=== PATIENT | male | born 1995 | race African-American/Black ===

== ENCOUNTER 2020-05-27 23:36 | Emergency (ER) | payer OTHER ==
[~2020-05-27] VITALS: Ht 167.6 cm; Wt 127.0 kg
[2020-05-27] MEDS ORDERED: OLANZAPINE 10 MG VIAL IM ONE (23:52)
[2020-05-27 23:58] VITALS: BP 134/74
--- NOTE | 2020-05-27 23:59 | NUR ---
PT WAS BIBRA FROM [place] FOR BIZARRE BEHAVIOR, HEARING VOICES AND SEEING THINGS. PT SEEMS AGITATED AND NONCOOPERATIVE ON TRIAGE, AND TALKING TO HIMSELF. PT WS PLACED IN BED 12. REFUSED MONITOR AT THIS TIME. SI PREVCAUTION IN PLACE. URINE SAMPLE OBTAINED , WILL CONT TO MONITOR,
[2020-05-28] MEDS ORDERED: OLANZAPINE 10 MG VIAL IM ONE
--- NOTE | 2020-05-28 00:02 | NUR ---
PATIENT IS RUDE TO TRIAGE NURSE. "I GIVE YOU URINE WHENEVER I WANT, DON'T TELL ME WHAT TO DO."
--- NOTE | 2020-05-28 00:03 | NUR ---
SUPERVISOR PICKING CREW AT BEDSIDE FOR BLOOD DRAW
--- NOTE | 2020-05-28 00:05 | NUR ---
PATIENT REFUSING BLOOD DRAW.
[2020-05-28 00:21] LABS: APPEARANCE,URINE Clear (CLEAR); BILIRUBIN,URINE Negative (NEGATIVE); BLOOD, URINE Negative Ery/uL (NEGATIVE); COLOR,URINE Yellow (YELLOW); KETONES,URINE Negative (NEGATIVE); LEUKOCYTE ESTERASE ,URINE Negative (NEGATIVE); NITRITE, URINE Negative (NEGATIVE); PROTEIN,URINE Negative (NEGATIVE); UGLUCOSE Negative (NEGATIVE); UROBILINOGEN,URINE 0.2 EU/dL (0.2)
--- NOTE | 2020-05-28 00:27 | NUR ---
PATIENT WANTS TO HAVE BLOOD DRAWN AGAIN.
--- NOTE | 2020-05-28 00:35 | NUR ---
PATIENT TOLD GORE CUTTER, "CAN YOU WAIT 20 MINUTES? I DON'T WANT ANY BLOOD DRAWN RIGHT NOW."
--- NOTE | 2020-05-28 00:48 | NUR ---
PATIENT IS RUDE TO STAFF. PATIENT IS CURSING AT STAFF.
--- NOTE | 2020-05-28 01:08 | NUR ---
PATIENT LEFT THE FACILITY.
== END 2020-05-28 01:12 | disposition left against medical advice (07) ==
LOC: ER 23:39
DX: Z76.5 Malingerer [conscious simulation] (principal); F31.9 Bipolar disorder, unspecified; F20.9 Schizophrenia, unspecified; Z59.0 Homelessness
CPT/HCPCS: 80305; 81001; 99283; J3490; 81000-TC

== ENCOUNTER 2020-05-29 17:47 | Emergency (ER) | payer MEDICAID, OTHER ==
[~2020-05-29] VITALS: Ht 170.2 cm; Wt 149.7 kg
--- NOTE | 2020-05-29 18:05 | NUR ---
CAME HERE FOR HELP REGARDING REHAB AND PLACEMENT SAYING HE DOESN'T FEEL SAFE OUTSIDE,"PEOPLE ARE OUT TO GET ME", DENIES SI/HI. PATIENT A/OX4, BREATHING EVEN AND UNLABORED, NO SOB NOTED, NEEDS ATTENDED, KEPT COMFORTABLE.
--- NOTE | 2020-05-29 18:55 | NUR ---
SOFI BOYKIN [phone]
--- NOTE | 2020-05-29 19:05 | NUR ---
PER LUCRETIA, PATIENT DOES NOT MEET CRITERIA FOR VOLUNTARY HOSPITAL SINCE PATIENT DENIES SI/HI. PATIENT GIVEN COPIES OF HOMELESS SHELTERS.
--- NOTE | 2020-05-29 21:32 | NUR ---
PATIENT IS CURSING AT SECURITY AND NURSING STAFF. PATIENT STATES, "SHUT THE FUCK UP, NIGGA", "I'LL SPIT IN YOUR FACE, NIGGA", "FUCK YOU". PATIENT IS RUDE. PATIENT IS PICKING UP AND THROWING THE HOLY BIBLE ON THE FLOOR 4 TIMES. PATIENT IS REFUSING POST GRADUATE INTERN, REFUSING SERVICES PROVIDED BY STAFF. PATIENT IS DISCHARGED WITH LIST OF SHELTERS. PATIENT REFUSES TO STATES WHERE HE WILL GO.
--- NOTE | 2020-05-29 21:45 | NUR ---
Patient discharged to home in stable condition. Written and verbal after care instructions given. Patient verbalizes understanding of instruction.
[2020-05-29 21:46] VITALS: BP 124/74
== END 2020-05-29 21:47 | disposition home or self-care (01) ==
LOC: ER 17:51
DX: Z00.00 Encounter for general adult medical examination without abnormal findings (principal); Z59.0 Homelessness; F20.9 Schizophrenia, unspecified; F31.9 Bipolar disorder, unspecified

== ENCOUNTER 2020-07-07 20:43 | Inpatient (IN) | payer MEDICAID, OTHER ==
[~2020-07-07] VITALS: Ht 172.7 cm; Wt 145.1 kg
[2020-07-07 21:22] LABS: BILIRUBIN,URINE SMALL (NEGATIVE); BLOOD, URINE LARGE Ery/uL (NEGATIVE); COLOR,URINE YELLOW (YELLOW); LEUKOCYTE ESTERASE ,URINE NEGATIVE (NEGATIVE); NITRITE, URINE NEGATIVE (NEGATIVE); PROTEIN,URINE 100 mg/dl (NEGATIVE); UGLUCOSE NEGATIVE (NEGATIVE)
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
[2020-07-07 21:34] LABS: BASOPHILS % (AUTO) 0.3 % (0.0-2.0); HEMATOCRIT 41 % (39-51); HEMOGLOBIN 13.2 g/dL (13.5-17.5); LYMPHOCYTES # (AUTO) 0.8 /CMM (0.8-4.8); LYMPHOCYTES % (AUTO) 5.5 % (20.0-44.0); MEAN CORPUSCULAR HGB CONC 33 g/dl (31.0-36.0); MEAN CORPUSCULAR VOLUME 83 fL (80-96); MONOCYTES # (AUTO) 0.8 /CMM (0.1-1.30); MONOCYTES % (AUTO) 5.4 % (2.0-12.0); NEUTROPHILS # (AUTO) 13.2 /CMM (1.8-8.9); NEUTROPHILS % (AUTO) 88.8 % (43.0-81.0); PLATELET COUNT (AUTO) 247 /CMM (150-450); RED BLOOD CELL COUNT(AUTO) 4.88 MIL/uL (4.5-6.0); WHITE BLOOD COUNT (AUTO) 14.9 K/uL (4.3-11.0)
[2020-07-07 21:34] LABS: BACTERIA,URINE 1+ /HPF (None Seen); SQUAMOUS EPITHELIAL CELL,UR 0-2 /HPF (None Seen); WBC,URINE 0-2 /HPF (0-3)
[2020-07-07] MEDS ORDERED: VANCOMYCIN 500 MG VIAL ONE (21:47)
[2020-07-07] MEDS ORDERED: CEFTRIAXONE 1GM BAG (ER ONLY) 50 ML IV ONE (21:47)
[2020-07-07] MEDS ORDERED: VANCOMYCIN 1 GM VIAL ONE (21:47)
[2020-07-07] MEDS ORDERED: VANCOMYCIN HCL IV ONE (22:00)
[2020-07-07] MEDS ORDERED: IV NS 0.9% 500 ML BAG IV ONE (22:00)
[2020-07-07] MEDS ORDERED: D5W IV ONE (22:00)
[2020-07-07] MEDS ORDERED: CEFTRIAXONE 1GM BAG (ER ONLY) 1 GM/50 ML PIGGYBACK IV ONE (22:00)
[2020-07-07 22:04] LABS: CARBON DIOXIDE 27 mmol/L (21-32); CHLORIDE 98 mmol/L (98-107); CREATININE 1.8 mg/dL (0.6-1.3); GLUCOSE 107 mg/dL (74-106); POTASSIUM 3.4 mmol/L (3.5-5.1); SODIUM SERUM 135 mmol/L (136-145); UREA NITROGEN, BLOOD 28 mg/dL (7-18)
[2020-07-07 22:09] LABS: ALANINE AMINOTRANSFERASE 116 U/L (12-78); ALBUMIN 2.9 g/dL (3.4-5.0); ALCOHOL, BLOOD < 3 mg/dL (0-0); ALKALINE PHOSPHATASE 67 U/L (46-116); ASPARTATE AMINOTRANSFERASE 308 U/L (15-37); BILIRUBIN,DIRECT 0.3 mg/dL (0.0-0.2); BILIRUBIN,TOTAL 0.6 mg/dL (0.2-1.0); TOTAL PROTEIN, SERUM 9.4 g/dL (6.4-8.2)
[2020-07-07 22:12] LABS: ACETAMINOPHEN < 2 ug/ml (10-30)
--- NOTE | 2020-07-07 22:15 | NUR ---
MEDICATED PER ERMD ORDER, PT FIDENCIO WELL. PT CALM & COOPERATIVE, NAD NOTED @ THIS TIME. WILL CONT TO MONITOR.
[2020-07-07] MEDS ORDERED: IV NS 0.9% 1,000 ML IV SCH (23:30)
[2020-07-07] MEDS ORDERED: ONDANSETRON HCL/PF 4 MG/2 ML VIAL IVP PRN (23:30)
[2020-07-07] MEDS ORDERED: MAG HYDROX/AL HYDROX/SIMETH 30 ML UDC PO PRN (23:30)
[2020-07-07] MEDS ORDERED: ACETAMINOPHEN 325 MG TABLET PO PRN (23:30)
[2020-07-07] MEDS ORDERED: MAGNESIUM HYDROXIDE 30 ML UDC PO PRN (23:30)
[2020-07-07] MEDS ORDERED: ZOLPIDEM TARTRATE 5 MG TABLET PO PRN (23:30)
[2020-07-07] MEDS ORDERED: Z GUARD REMEDY 2 OZ OINT TP PRN (23:30)
[2020-07-08] VITALS (7 sets, daily range): BP systolic 88–142; BP diastolic 52–94
--- NOTE | 2020-07-08 00:31 | NUR ---
PT RESTING IN BED COMFORTABLY. VSS.
--- NOTE | 2020-07-08 02:13 | NUR ---
PT PROVIDED WITH MORE BLANKETS.
[2020-07-08 03:58] LABS: BASOPHILS # (AUTO) 0.1 /CMM (0.0-0.2); BASOPHILS % (AUTO) 0.4 % (0.0-2.0); HEMATOCRIT 36 % (39-51); HEMOGLOBIN 11.5 g/dL (13.5-17.5); LYMPHOCYTES # (AUTO) 0.8 /CMM (0.8-4.8); MEAN CORPUSCULAR HGB CONC 32 g/dl (31.0-36.0); MEAN CORPUSCULAR VOLUME 83 fL (80-96); MONOCYTES % (AUTO) 7.2 % (2.0-12.0); NEUTROPHILS # (AUTO) 11.6 /CMM (1.8-8.9); NEUTROPHILS % (AUTO) 86.4 % (43.0-81.0); PLATELET COUNT (AUTO) 227 /CMM (150-450); WHITE BLOOD COUNT (AUTO) 13.4 K/uL (4.3-11.0)
--- NOTE | 2020-07-08 04:11 | NUR ---
PT ON MONITOR AND PULSE OX. VSS.
[2020-07-08 04:13] LABS: ALANINE AMINOTRANSFERASE 102 U/L (12-78); ALBUMIN 2.4 g/dL (3.4-5.0); ALKALINE PHOSPHATASE 59 U/L (46-116); ASPARTATE AMINOTRANSFERASE 242 U/L (15-37); BILIRUBIN,TOTAL 0.5 mg/dL (0.2-1.0); CALCIUM, SERUM 7.7 mg/dL (8.5-10.1); CARBON DIOXIDE 27 mmol/L (21-32); CHLORIDE 100 mmol/L (98-107); CREATININE 1.4 mg/dL (0.6-1.3); GLUCOSE 110 mg/dL (74-106); MAGNESIUM 1.9 mg/dL (1.8-2.4); PHOSPHORUS 1.3 mg/dL (2.5-4.9); POTASSIUM 3.4 mmol/L (3.5-5.1); SODIUM SERUM 135 mmol/L (136-145); TOTAL PROTEIN, SERUM 8.1 g/dL (6.4-8.2); UREA NITROGEN, BLOOD 20 mg/dL (7-18)
[2020-07-08 04:15] LABS: CHOLESTEROL 100 mg/dL (<200); LDL 43 mg/dL (0-99); TRIGLYCERIDES 154 mg/dL (30-150)
[2020-07-08 04:30] LABS: HDL CHOLESTEROL < 10 mg/dL (40-60)
--- NOTE | 2020-07-08 06:03 | NUR ---
PT C/O PAIN, MEDICATED.
[2020-07-08] MEDS ORDERED: HYDROCODONE/APAP 5/325MG TABLET ONE (06:10)
[2020-07-08] MEDS: HYDROCODONE/APAP 5/325MG TABLET PO PRN ×3 (06:11→18:17)
[2020-07-08] MEDS ORDERED: RISP0.2515 PO (07:42)
[2020-07-08] MEDS ORDERED: BENZ2TAB7 PO (07:42)
--- NOTE | 2020-07-08 07:52 | NUR ---
room [id number]
--- NOTE | 2020-07-08 08:42 | NUR ---
REPORT GIVEN TO ASHUTOSH NUNEZ FOR EDY.
--- NOTE | 2020-07-08 08:44 | NUR ---
report given to Casper BOYKIN for bren
--- NOTE | 2020-07-08 08:59 | NUR ---
wheeled patient via gurney accompanied by RN and emt in no distress. RN at bedside to assume care.
--- NOTE | 2020-07-08 09:30 | NUR ---
MASTER NAVAL PARACHUTIST NOTES RECEIVED PATIENT FROM ER WITH ADMITTING DIAGNOSIS OF SEPSIS , SIRS AND SUICIDAL IDEATION , AOX4 , VERBALIZING SUICIDAL IDEATION BY PLANNING TO JUMP INFRONT OF A CAR , NO HOMICIDAL IDEATION AT THIS TIME , DENIES SOB AND DISCOMFORT AT THIS TIME , SPO2 OF 97% VIA RA , ST 110 ON BEDSIDE MONITOR , IV OF R AC # 18 PATENT AND INTACT SL , SKIN ASSESSMENT DONE NOTED WITH WOUNDS AT LEFT AND RIGHT BUTTOCKS AND SACRAL AREA TOOK A PICTURE AND PLACED IN THE CHART , WOUND CONSULT ORDER FOR EVAL , ALL NEEDS ATTENDED , SAFETY MEASURES IMPLEMENTED , WILL CONTINUE TO MONITOR .
[2020-07-08] MEDS: IV NS 0.9% 1,000 ML IV PRN ×2 (09:32→16:54)
[2020-07-08] MEDS ORDERED: POTASSIUM CHLORIDE 20 MEQ TAB.PRT.SR PO SCH (10:00)
--- NOTE | 2020-07-08 10:00 | NUR ---
DIE DESIGNER APPRENTICE NOTES FAXED FACE SHEET TO [facility]
--- NOTE | 2020-07-08 11:21 | NUR ---
STREET LIGHT REPAIRER NOTES SEEN AND EVALUATED BY DR MERCEDES , DISCUSSED LABS , CHEST XRAY RESULTS , ST 110-120 , TEMP OF 99.0F , SPO2 OF 95-100% VIA RA , DENIES SOB , C/O OF LEFT LEG PAIN WITH NON PITTING EDEMA , NO REDNESS , SWOLLEN , VERBALIZING SUICIDAL IDEATION BY PLANNING TO JUMP INFRONT OF A CAR , PER MD ORDER DOPPLER STUDIES OF BLE , ORDER CARRIED OUT , F/U TO REVIEW MEDICATION RECON MD AWARE
[2020-07-08] MEDS ORDERED: K PHOS NEUTRAL 250 MG TABLET PO ONE (11:30)
--- NOTE | 2020-07-08 15:57 | NUR ---
DENTAL OFFICE ASSISTANT NOTES CALLED [facility] SPOKE WITH ALISA , FOLLOWED UP IF THEY RECEIVED THE FACE SHEET FAXED THIS AM FOR PSYCH CONSULT , PER ALISA HE GAVE IT TO DR SON .
--- NOTE | 2020-07-08 16:03 | NUR ---
SW met with the patient at bedside. Patient is alert and oriented x4. Patient was lying in bed. Patient was receptive to speaking to this SW. Patient Patient is a 24 year-old male. Patient reports that he is homeless. Patient presented to [facility] ED on 07/08 for suicidal ideation to run into traffic and for pain in his left leg. Patient reports that he has been homeless since he was 16 years old. Patient reports that he has been living with family but due to recent events patient has inadequate social support. Pt began to report that these recent events patient was triggered into a "negative state of mind". Patient reports that he has been feeling paranoid, patient reports that he feels like someone is following him. Patient reports a diagnosis of Bipolar and Schizophrenia when he was 16 years old. Patient denied past psychiatric hospitalizations. Patient reports that he is not taking medications for Bipolar and Schizophrenia as patient does not want to take medications. Patient denies current use of alcohol and drug use. SW assessed patients needs and discussed community resources for homeless individuals, patient was receptive to receiving this information. SW and patient discussed voluntary psychiatric hospitalization once patient is medically cleared and patient was not in agreement. Plan: SW to speak with patient nurse for a psychiatric consult. SW to provide homeless resources to the patient. SW to remain available for all needs regarding this patient.
--- NOTE | 2020-07-08 16:57 | NUR ---
SW provided the following resources to the patient, patient was receptive to receiving these resources. Substance Abuse resources provided included: [facility] Substance Abuse Self-Helpline ([facility]) ; CRI -HELP [address] [facility] [place] [id number] ; [place] [facility] [place] [address] [facility] [address] ; [facility] [address] [facility] [phone] ; [facility] [address] [facility] [address] ; [facility] [address] [facility] [phone] ; [facility] [place] [address] [facility] [phone] ; [facility] Substance Abuse Helpline([facility])-[facility] ; [facility] ; [facility] [place]; [facility] [place]; [facility] Jesus Alberto [place]; [facility] [place]; [facility]; [facility] [place]; [facility], [facility]. [place]; Alcoholics Anonymous -SFV; Jm-Tbit-Bfbxgdq ; Marijuana Anonymous -SFV; Narcotics Anonymous www.na.org. Year-round shelters: [facility] [address] [place] [address] ; [facility] [address] [place] [address]; [facility] Qajpfgr3976 [facility]. [facility] [address] Hygiene: [facility]: [address] [address] [place]. [place] ; [facility] [address] [facility] ; [facility] [address] [place] . Food Resources: [place] [facility] at [facility]- [address] [place]; Meet Each Need with Dignity ([facility]) [address] [facility] [place]; [facility] Food Pantry 4367 [facility]; [facility] 8517 [facility] [place]. Mental Health resources provided: [facility] [address] [place], [place] [id number] ; [facility] [place] [address] [facility] [address], [place], [place] [id number] ; [facility] [address], [place] [phone] ; [facility] [address] [place], [place] [id number] Healthcare Clinics: [facility] [address] [facility] [address] [place]. [place] ; [facility] [address] [facility] [address] [place] [address]; [facility] [address] [facility]. [place] [phone]
--- NOTE | 2020-07-08 17:42 | NUR ---
CORPORATE PHYSICAL SECURITY SUPERVISOR NOTES PAGED DR MERCEDES TO FOLLOW UP IF HE WANTS TO CONTINUE HOME MEDS , AND PT STILL COMPLAINING OF PAIN AT LEFT LEG , AWAITING FOR CALL BACK
--- NOTE | 2020-07-08 18:10 | NUR ---
NURSING CLERK NOTES SPOKE WITH DR MERCEDES , DISCUSSED IF HE WANTS TO CONTINUE HOME MEDS , PSCYH CONSULT STILL PENDING , PT STILL COMPLAINS OF PAIN NORCO GIVEN 4 HOURS AGO ANDSTILL WITH MINIMAL EFFECT , PER MD WAIT FOR PRSYCH TO CONTINUE HOME MEDS , NO NEW ORDERS RECEIVED NOTIFIED BLE VENOUS DOPPLER STILL PENDING , MD AWARE
--- NOTE | 2020-07-08 18:59 | NUR ---
INTERNAL AUDIT SENIOR MANAGER NOTES PATIENT STABLE AT THIS TIME , NO ACUTE EVENT NOTED ,AOX4 ,STILL VERBALIZING SUICIDAL IDEATION BY PLANNING TO JUMP INFRONT OF A CAR , NO HOMICIDAL IDEATION AT THIS TIME , DENIES SOB AND DISCOMFORT , SPO2 OF 98% VIA RA , ST 108 ON BEDSIDE MONITOR , IV OF R AC # 18 PATENT AND INTACT WITH NS @ 125ML HR INFUSING WELL , , ALL NEEDS ATTENDED , SAFETY MEASURES IMPLEMENTED , REPORT GIVEN TO RIANNA FOR CONTINUITY OF CARE
--- NOTE | 2020-07-08 19:30 | NUR ---
RN NOTE: Received patient in bed, awake, alert and verbally responsive. Respiration even and unlabored and was saturating 95% in room air. Denied pain or discomfort. ST on the bottom cager in the low 100's. Patient preferred lying supine on the bed. (R) AC IV site noted patent and intact with NS@125ml/hr. Patient was noted talking to himself inside the room, but he denied thinking of hurting himself. Patient on close visual monitoring with staff. Used the urinal at the bedside. Call light within reach. needs anticipated.
--- NOTE | 2020-07-08 21:40 | NUR ---
RN NOTE: Called and spoke with Dr. Lisha Knowles regarding the psychiatric consult for the patient in order to follow with his psych meds. Order, noted and carried out. Called and spoke with Faa from [employer] and she was informed of the new consult. Face sheet was faxed to [employer].
--- NOTE | 2020-07-08 22:50 | NUR ---
RN NOTE ASSUMED PATIENT CARE AND BEDSIDE REPORT FROM ASHUTOSH HERRON AROUND THIS TIME.
--- NOTE | 2020-07-08 22:51 | NUR ---
RN NOTE: Report was given to ASHUTOSH Mckeon for continuity of care. Patient remained on stable condition at the bedside.
[2020-07-09] VITALS: BP 115/66
[2020-07-09] MEDS: IV NS 0.9% 1,000 ML IV PRN ×2 (01:20→23:39)
[2020-07-09 04:00] VITALS: BP 108/52
--- NOTE | 2020-07-09 04:05 | NUR ---
RN NOTE PATIENT REFUSED BED BATH AT THIS TIME. PATIENT VERBALIZED HE WOULD LIKE TO BE CLEANED LATER DURING THE DAY AND PATIENT REQUESTS TO BE LEFT ALONE TO SLEEP. PATIENT IS A&O X3. WILL CONTINUE TO MONITOR.
--- NOTE | 2020-07-09 05:15 | NUR ---
RN NOTE PATIENT REFUSED BLOOD DRAW FOR LAB AT THIS TIME. ASKED LAB PERSONNEL TO TRY AGAIN LATER.
--- NOTE | 2020-07-09 07:10 | NUR ---
RN NOTE: Received patient in bed, awake, alert and verbally responsive. A/O x3, on external monitor with current reading of ST HR of 100's. IV access on (R) AC IV site noted patent and intact with NS@125ml/hr. Patient was noted talking to himself inside the room, but he denied thinking of hurting himself. Patient on close visual monitoring with staff. Safety measures in place, bed in lowest locked position with side rails up x2. call light within easy reach. will continue to monitor.
[2020-07-09 08:00] VITALS: BP 118/54
--- NOTE | 2020-07-09 08:33 | NUR ---
RN NOTES VERBALLY ABUSIVE, REFUSED LABS SINCE THIS AM, REFUSED TELE MONITORING BOX. MD MADE AWARE, WILL CONTINUE TO MONITOR.
--- NOTE | 2020-07-09 09:17 | NUR ---
WOUND CARE CONSULT: PT PRESENTS WITH STAGE 2 ULCERS TO SACRUM AND BILATERAL BUTTOCKS, PRESENT ON ADMISSION. PT ALSO NOTED TO HAVE SWELLING AND PAIN TO LEFT LOWER LEG, PRESENT ON ADMISSION. PER RN, DOPPLER WAS JUST PERFORMED. AWAITING RESULTS. RECOMMENDATIONS MADE FOR SKIN PROTECTION AND WOUND CARE. DISCUSSED WITH NURSING STAFF. PT IS ABLE TO ASSIST WITH TURNING AND REPOSITIONING IN BED. PT IS ON BLANCO ISOFLEX LOW AIRLOSS BED. MD IN AGREEMENT WITH PLAN OF CARE.
[2020-07-09] MEDS ORDERED: HYDROGEL DRESSING 90 GM TUBE TP PRN (09:30)
[2020-07-09] MEDS: HYDROGEL DRESSING 90 GM TUBE TP SCH (10:07)
[2020-07-09] MEDS ORDERED: K PHOS NEUTRAL 250 MG TABLET PO ONE (12:00)
[2020-07-09] MEDS: POTASSIUM PHOSPHATE MM 7.5 MMOL in IV NS 0.9% 100 ML IV SCH ×2 (12:07→15:19)
--- NOTE | 2020-07-09 13:45 | NUR ---
JULIO received a call from Berta regarding patient's referral. Patient has been accepted to [facility]. Number for report is . Plan: JULIO to provide nurse with this information for patient to be transferred to [facility]. [address] [place] [address] . JULIO will coordinate with nursing and case management to ensure a safe and proper discharge for the patient.
--- NOTE | 2020-07-09 15:04 | NUR ---
RN NOTES REFUSED LAB DRAW FOR 3X ALREADY, EXPLAINED RISKS AND BENEFITS BUT STILL REFUSED. MD MADE AWARE, WILL CONTINUE TO MONITOR.
--- NOTE | 2020-07-09 16:50 | NUR ---
per kieran ellison pending dc r/t fever facility will not accept pt.they will explain it to dr. hendricks.
--- NOTE | 2020-07-09 16:50 | NUR ---
JULIO spoke with Luciana at [facility]. Patient cannot be transferred to [facility] due to ulcers on buttocks. Plan: SW to speak with Dr. Lucia regarding plan of care.
--- NOTE | 2020-07-09 16:52 | NUR ---
SW spoke with Dr. Luica due to patient's plan of care. Dr. Lucia would like this patient to be referred to [facility] . Plan: SW to refer the patient to [facility].
--- NOTE | 2020-07-09 16:53 | NUR ---
JULIO spoke with Jessica at [facility] . Jessica asked this SW to fax patient clinicals to . Plan: JULIO to follow up with Jessica or other intake it sales representative at [facility] regarding this referral. JULIO remains available for all needs regarding this patient.
[2020-07-09 17:00] VITALS: BP 109/67
--- NOTE | 2020-07-09 18:41 | NUR ---
RN NOTE: Patient in bed, awake, alert and verbally responsive. A/O x3. IV access on (R) AC IV site noted patent and intact with NS@125ml/hr. Still noted with episode of suicidal ideation but no plan, talks to himslef and hearing voices, Patient on close visual monitoring with staff. Non compliant with plan of care. MD made aware. Safety measures in place, bed in lowest locked position with side rails up x2. call light within easy reach. Will endorse to bag mender nurse for bren.
--- NOTE | 2020-07-09 19:26 | NUR ---
RN NOTES PATIENT A/O X3, ABLE TO VERBALIZE NEEDS. NO SOB OR ANY DISTRESS. O2 SAT 97% IN ROOM AIR. DENIES ANY PAIN AT THIS TIME. RIGHT AC #18 INTACT AND PATENT. IVF NS @ 125 ML/HR. DENIES ANY SUICIDAL INTENT, STATED "I'M NOT GIVING UP." OFFERED JUICE, AND ACCEPTED. WITH 1:1 SITTER AT BEDSIDE. BED LOCKED AND IN LOWEST POSITION. SIDE RAILS UP X2. SAFETY MEASURES IMPLEMENTED. CALL LIGHT WITHIN REACH. WILL CONTINUE TO MONITOR.
--- NOTE | 2020-07-09 20:10 | NUR ---
GAVE REPORT TO HAILEY BOYKIN FOR EDY.
--- NOTE | 2020-07-09 20:12 | NUR ---
RN OPENING NOTE RECEIVED PATIENT IN BED RESTING ALERT ORIENTED X3 VERBALLY RESPONSIVE NO SOB NOT ACUTE DISTRESS IV SITE IS ON RIGHT AC INTACT PATENT,IV HYDRATION NS 0.9% 125CC/HR RUNNING,SAFETY MEASURE IMPLEMENT, BED IN LOW POSITON AND LOCKED,CALL LIGHT WITHIN REACH,CONTINUE TO MONITOR
[2020-07-09] MEDS: HYDROCODONE/APAP 5/325MG TABLET PO PRN (20:47)
[2020-07-09] MEDS: MUPIROCIN OINT 2% 22 GM TUBE NS SCH (20:47)
[2020-07-09 21:00] VITALS: BP 109/67
--- NOTE | 2020-07-09 21:00 | NUR ---
RN CLOSING NOTE DOPPLER BILATERAL LOWER EXTREMITIES DONE CONTINUE TO MONITOR
--- NOTE | 2020-07-09 21:10 | NUR ---
RN CLOSING NOTE PATIENT REMAINS ON ALERT ORIENTED X3 VERBALLY RESPONSIVE NO SOB NOT ACUTE DISTRESS NOTED,ENDORSED TO RENETTA RN FOR CONTINUATION OF CARE.
[2020-07-09] MEDS: BENZTROPINE MESYLATE (1 MG) 1 MG TABLET PO SCH (21:49)
[2020-07-09] MEDS: risperiDONE 1 MG TABLET PO SCH (21:49)
[2020-07-10] MEDS: HYDROCODONE/APAP 5/325MG TABLET PO PRN (05:34)
--- NOTE | 2020-07-10 05:35 | NUR ---
RN NOTE PT DECLINED BLOOD DRAW REQUESTING DRAW AT 0800.
[2020-07-10] MEDS: IV NS 0.9% 1,000 ML IV PRN (06:34)
--- NOTE | 2020-07-10 06:42 | NUR ---
RN NOTE PATIENT IN BED CURRENTLY ASLEEP. PT REMAINED A/O X3 VERBALLY, ON O2 2L/MIN VIA NC. NO SOB NOT ACUTE DISTRESS. IV SITE TO RT HAND PATENT INTACT AND FLUSHING WELL ,IVF NS 0.9% AT 125CC/HR RUNNING,SAFETY MEASURE IMPLEMENT, BED IN LOW POSITON AND LOCKED,CALL LIGHT WITHIN REACH, SITTER AT BEDSIDE, PT REQUESTING BLOOD DRAW AT 0800. ENDORSED TO AM RN FOR EDY
--- NOTE | 2020-07-10 07:00 | NUR ---
RN OPENING NOTE RECEIVED PATIENT IN BED RESTING. ALERT AND ORIENTED X3, OXYGEN THERAPY VIA NASAL CANNULA, TOLERATING WELL. NO S/S OF RESPIRATORY DISTRESS. IV SITE ON R HAND 22G RUNNING NS @125 ML/HR. SAFETY MEASURES IMPLEMENETED, BED IN LOWEST POSITION AND LOCKED. CALL LIGHT WITHIN REACH. SITTER IN ROOM WITH PATIENT. WILL CONTINUE TO MONITOR
[2020-07-10 09:00] VITALS: BP 102/65
--- NOTE | 2020-07-10 09:25 | NUR ---
PATIENT WAS SEEN BY DR SON.
[2020-07-10] MEDS: HYDROGEL DRESSING 90 GM TUBE TP SCH (09:29)
[2020-07-10] MEDS: MUPIROCIN OINT 2% 22 GM TUBE NS SCH ×2 (09:29→21:08)
--- NOTE | 2020-07-10 09:41 | NUR ---
SW met with the patient at bedside. Patient agreeable to transfer to a voluntary psychiatric hospital. SW will refer patient to [facility] intake once medically cleared. Plan: JULIO to follow-up with creasing and cutting press feeder Amy.
--- NOTE | 2020-07-10 09:55 | NUR ---
Patient was referred to [facility] intake . notified Mikel at [facility] regarding this patient.
--- NOTE | 2020-07-10 10:49 | NUR ---
JULIO was contacted by Mikel at [facility] that this patient's clinicals are currently under review. Plan: JULIO will follow-up with Mikel regarding this referral.
--- NOTE | 2020-07-10 12:15 | NUR ---
IV LINE PATIENT REPORTED THAT IV LINE "FELL OUT", ASSESSED SITE. NO EXCESSIVE BLEEDING NOTED. COVERED SITE WITH DRY DRESSING. PATIENT REFUSED NEW IV LINE AT THIS TIME.
--- NOTE | 2020-07-10 13:23 | NUR ---
RT PT REFUSE ABG
--- NOTE | 2020-07-10 18:38 | NUR ---
RN CLOSING NOTE PATIENT IN BED RESTING, NO SIGNS OF DISTRESS AT THIS TIME. PATIENT A/OX4 WITH AUDITORY HALLUCINATIONS. PATIENT CONTINUES TO BE NON-COMPLIANT, REFUSED LABS AND ABG DRAW AND NEW IV PLACEMENT AFTER PULLING OUT HIS IV. CONTINUES TO HAVE SUICIDAL IDEATION BUT REPORTED WANTING TO GO TO THERAPY TO GET HELP. BED LOCKED IN THE LOWEST POSITION, CALL LIGHT WITHIN REACH. ALL SAFETY MEASURES FOLLOWED PER HOSPITAL POLICY. WILL ENDORSE TO SQL PROGRAMMER.
[2020-07-10 20:00] VITALS: BP 101/62
--- NOTE | 2020-07-10 20:00 | NUR ---
RN NOTE PT RECEIVED IN BED RESTING, A/A/O X3. PT IS ON 2L VIA NC SATING 97%. PT HAS UNLABORED BREATHING. PT DOES NOT HAVE IV ACCESS, AND REFUSES TO HAVE IV ACCESS. PT DENIES SUICIDAL IDEATION. SAFETY MEASURES IN PLACE.
[2020-07-10] MEDS: risperiDONE 1 MG TABLET PO SCH (22:00)
[2020-07-10] MEDS: BENZTROPINE MESYLATE (1 MG) 1 MG TABLET PO SCH (22:00)
[2020-07-11 04:00] VITALS: BP 131/64
--- NOTE | 2020-07-11 07:08 | NUR ---
RN NOTE PT REMAINED STABLE DURING MY SHIFT, REPORT GIVEN TO INCOMING SHIFT FOR EDY.
--- NOTE | 2020-07-11 07:24 | NUR ---
PT IN BED WATCHING TV, ALERT AND ORIENTED X 3 AND TALKS TO HIMSELF (HX OF SCHIZOPHRENIA). PT HAS 2L NC CURRENTLY REMOVED BY PT, STATES HE WILL PUT IT BACK ON. O2 SATURATION 96%, NO RESPIRATORY DISTRESS OR SOB. PT HAS SACRAL WOUND, REFUSE STITCH BONDING MACHINE TENDER. PT STATES HE WANTS FEMALE STAFF TO HELP HIM CLEAN. PT ON REGULAR DIET, CURRENTLY PENDING TRANSFER. PT HAS NO IV ACCESS, REFUSED REINSERTION PER PREVIOUS RN PREETHI AND MACHINE WELDER YOKASTA NOTE. BED IN LOCKED LOWEST POSITION, CALL LIGHT WITHIN REACH. ALL SAFETY MEASURES IN PLACE. WILL CONTINUE TO MONITOR CLOSELY
[2020-07-11 08:00] VITALS: BP 126/77
[2020-07-11] MEDS: HYDROGEL DRESSING 90 GM TUBE TP SCH ×2 (09:00→11:10)
[2020-07-11] MEDS: MUPIROCIN OINT 2% 22 GM TUBE NS SCH ×3 (09:00→21:43)
--- NOTE | 2020-07-11 09:16 | NUR ---
PT DENIES SUICIDAL IDEATION AT THIS TIME. PT IS HIGHLY MOTIVATED TO TRANSFER TO ANOTHER FACILITY IN ORDER TO RECEIVE PSYCHIATRIC TX.
--- NOTE | 2020-07-11 09:39 | NUR ---
Clinical Social Work Update Patient's [address] Lucia on 07/09/20. Patient is not able to placed in any inpatient psych. unit due to decubitae. He is taking psychotropic meds. prescribed by Dr Lucia. Discussed case with case management and patient will need placement in a prison facility. Caren in case management is aware and is attempting placement. Dr Dela Cruz suggested [facility] that accepts young patients with psychiatric patients. Case management agreed to follow up with this suggestion.
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
[2020-07-11 16:00] VITALS: BP 112/76
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
--- NOTE | 2020-07-11 18:00 | NUR ---
PER MD SON, PT TO BE PLACED ON 14-DAY HOLD, FORM FAXXED OVER AND IN CHART. PT TO HAVE 1:1 OBSERVATION. BENEFITS ANALYST NOTIFIED, BUT NO STAFF AVAILABLE. LINE OF SIGHT OBSERVATION IN PLACE. BENEFITS ANALYST TO ORDER SITTER IN AM.
--- NOTE | 2020-07-11 19:00 | NUR ---
PT IN BED ALERT AND ORIENTED X 4, ON 2L O2 SATURATION 96-100%. PT INTERMITTENTLY REMOVES O2, NO RESPIRATORY DISTRESS OR SOB. PT AMBULATORY TO BATHROOM WITH WALKER. PT HAS L/R BUTTOCKS WOUND, LEFT FOOT WOUND, REFUSED WOUND CARE THIS SHIFT. PT ALSO HOSTILE WHENEVER RN WAS IN CLOSE PROXIMITY TO PT. PT ON REGULAR DIET. PT HAS NO IV ACCESS. PER OVEN BAKER, PT TO BE TRANSFERRED TO INPATIENT PSYCH. BED IN LOCKED LOWEST POSITION, CALL LIGHT WITHIN REACH. ALL SAFETY MEASURES IN PLACE. REPORT GIVEN TO ONCOMING RN FOR EDY
[2020-07-11 20:00] VITALS: BP 138/75
[2020-07-11] MEDS: BENZTROPINE MESYLATE (1 MG) 1 MG TABLET PO SCH ×2 (21:44→22:00)
[2020-07-11] MEDS: risperiDONE 1 MG TABLET PO SCH ×2 (21:44→22:00)
[2020-07-11] MEDS ORDERED: GUAIFENESIN/D-METHORPHAN HB 5 ML UDC PO PRN (23:30)
[2020-07-12 04:00] VITALS: BP 127/69
[2020-07-12 05:56] VITALS: BP 138/75
--- NOTE | 2020-07-12 06:09 | NUR ---
RN notes Received patiet awake in bed watching TV with no distress noted. breathing even and unlabored. Alert and oriented with episodes of agitation, screaming when asking for something. Refuses to take his routine medidcation. Ambulatory, uses bathroom. At about 24:00, noted patient coughing continuously, dry cough. Called MD and requested cough medicine. Ordered Robitussin 15ml every 6 hours PRN. Gave patient the cough medicine with relief. No complaint of pain or discomfort. Kept clean and dry. Needs attended. Will endorse to next shift for continuity of care
--- NOTE | 2020-07-12 07:30 | NUR ---
PATIENT IN BED, RAISES VOICE WHEN COMMUNICATED WITH, 1 TO 1 SITTER PRESENT, NO S/S OF RESP DISTRESS, ON 2L NASAL CANULA, O2 SAT 96%, AMBULATES WITH WALKER, REGULAR DIET, STAGE 2 SACRAL ULCER, WILL TREATED PER ORDERS, FALL RISK, SITTER MONITORING, NO IV ACCES DUE TO PATIENT REFUSAL, BED IN LOWEST LOCKED POSITION, SAFETY MEASURES IN PLACE. PATIENT IS SUICIDAL, SUICIDE PRECAUTIONS IN PLACE WITH SITTER OBSERVING AT ALL TIMES. WILL CONTINUE TO MONITOR.
--- NOTE | 2020-07-12 08:00 | NUR ---
RN MED SURG1 PATIENT REFUSED VITAL SIGNS, EDUCATED ON WHY WE TAKE THEM BUT STILL REFUSED.
[2020-07-12] MEDS: MUPIROCIN OINT 2% 22 GM TUBE NS SCH (10:33)
[2020-07-12] MEDS: HYDROGEL DRESSING 90 GM TUBE TP SCH (10:33)
--- NOTE | 2020-07-12 10:50 | NUR ---
Clinical Social Work Update Met with patient in his room where he is alert and oriented x4. This clinician presented discharge plan to patient. He was advised that he has an accepting board and care and this is his only accepting facility. Patient was advised that if he refusing the one facility that can meet his needs, he is free to leave on his own and may be escorted out since he no longer needs to stay on the medical floor. Patient showed understanding and said " that is fine". Patient has stabilized on his medication and shows no evidence of psychosis. He is not suicidal or homicidal. He longer meets LPS criteria for an involuntary hold. Dr Lucia discontinued his hold. Report was given to Daniela BOYKIN. Patient acted out and got angry yesterday as he did not want to go to the board and care. Patient requested crutches rather than a walker as he stated " it is easier with his leg that hurts". Franco PT aid was present and said he can assess patient for crutches. Mary Mcallister RN is coordinating discharge with Artem [facility] and [facility], [place], [address] [facility] [address] and ambulance hot die picker is at 11.30. Patient signed homeless waiver and will be given homeless resources by Monalisa BOYKIN. ASHUTOSH Suarez was advised to do homeless checklist.
--- NOTE | 2020-07-12 11:04 | NUR ---
DENTAL LABORATORY MANAGER PATIENT REFUSED INFLUENZA AND PNEUMOCOCCAL VACCINE DESPITE EDUCATION.
--- NOTE | 2020-07-12 14:45 | NUR ---
RN MED SURG1 PATIENT WAS SCHEDULED FOR DISCHARGE TO [facility], FULL DISCHARGE PREP WAS PERFORMED, NO IVs WERE IN PLACE, WOUNDS WERE TAKEN PICTURES OF, PATIENT REFUSED VITAL SIGNS, WAS PROVIDED THE PRESCRIBED BACTROBAN AND HYDROGEL FOR WOUND CARE, HE WAS ALSO PROVIDED MEPILEX GAUZE TOOTH BRUSH, SOAP, LOTION, TOOTH PASTE, SOCKS, AND CLOTHING. WHEN TRANSPORT WAS HERE TO DRAMATIC READER THE PATIENT HE THEN REFUSED TO BE TRANSFERRED TO THE [facility] AND [facility], AND DECIDED HE WANTED TO BE DISCHARGED TO THE STREETS. DURING THIS EVENT HE BEGAN TO YELL, SECURITY WAS CALLED, AND A CODE RASHIDA WAS CALLED, PATIENT WAS ESCORTED OUT BY [facility] PER HIS DISCHARGE, ELECTROTYPE CASTER WAS CONTACTED AND AWARE OF THE SITUATION. PROVIDED THE ADDRESS AND PHONE NUMBER TO THE BOARD AND CARE FACILITY TO THE PATIENT.
--- NOTE | 2020-07-15 09:04 | NUR ---
Late Entry Clinical Social Work Note Patient refused placement at board and care upon arrival of ambulance per Mary Mcallister oil field caser. He needed security to escort him out. Patient was alert and oriented x4 at discharge and denied suicidal or homicidal ideation. This clinician was off site at time of dischrage but nursing cost control supervisor Mary, was present at time of discharge.
== END 2020-07-12 15:10 | disposition home or self-care (01) | DRG 469 ==
LOC: ER 20:44 → TELE1 07-08 06:13 → ICU 07-08 07:53 → TELE1 07-08 23:59 → MEDSG1 07-09 08:33
PROVIDERS: ADMIT Family Medicine; ATTEND Family Medicine
DX: N17.0 Acute kidney failure with tubular necrosis (principal); G47.33 Obstructive sleep apnea (adult) (pediatric); E66.01 Morbid (severe) obesity due to excess calories; E87.1 Hypo-osmolality and hyponatremia; E44.0 Moderate protein-calorie malnutrition; R65.10 Systemic inflammatory response syndrome (SIRS) of non-infectious origin without acute organ dysfunction; E87.6 Hypokalemia; Z68.42 Body mass index [BMI] 45.0-49.9, adult; R45.851 Suicidal ideations; Z59.0 Homelessness; Z87.891 Personal history of nicotine dependence; E86.1 Hypovolemia; E87.2 Acidosis; F31.9 Bipolar disorder, unspecified; F25.9 Schizoaffective disorder, unspecified; L89.152 Pressure ulcer of sacral region, stage 2; L89.322 Pressure ulcer of left buttock, stage 2; L89.312 Pressure ulcer of right buttock, stage 2
CPT/HCPCS: 36415; 71045-TC; 80048-TC; 80053-TC; 80061-TC; 80076-TC; 81001; 83605-TC; 83735-TC; 84100-TC; 85025-TC; 87040-TC; 87081-TC; 87086-TC; 93970-TC; 97116-TC; 97530-TC; A6248; C9803; G0378; G0480; J0696; J3370; J3490; J7030; J7040; J7060; U0003

== ENCOUNTER 2020-07-12 20:03 | Emergency (ER) | payer OTHER ==
[~2020-07-12] VITALS: Ht 170.2 cm; Wt 140.6 kg
[~2020-07-12 20:03] MED LIST: BENZ2TAB7 PO; RISP0.2515 PO
[2020-07-12] MEDS ORDERED: diphenhydrAMINE HCL 50 MG/ML VIAL ONE (20:25)
[2020-07-12] MEDS ORDERED: LORAZEPAM INJ 2 MG/ML VIAL ONE (20:26)
[2020-07-12] MEDS ORDERED: HALOPERIDOL LACTATE INJ 5 MG/ML VIAL ONE (20:26)
[2020-07-12] MEDS ORDERED: LORAZEPAM INJ 2 MG/ML VIAL IM ONE (20:30)
[2020-07-12] MEDS ORDERED: diphenhydrAMINE HCL 50 MG/ML VIAL IM ONE (20:30)
[2020-07-12] MEDS ORDERED: HALOPERIDOL LACTATE INJ 5 MG/ML VIAL IM ONE (20:30)
--- NOTE | 2020-07-12 20:32 | NUR ---
BIBRA 860 C/O LEFT LEG PAIN X 7 DAYS AND +SI PLAN TO WALK INTO TRAFFIC. PT BECAME AGITATED & SCREAMING AT STAFF. PT SEEN & EVAL'D BY DR. NOBLE. MEDICATED ORDERED. PT PLACED ON AIR DIRECTOR & SITTER @ BS & WILL CONT TO MONITOR.
[2020-07-12] MEDS ORDERED: LIDOCAINE 2% JEL UROJET 10 ML MM ONE (21:34)
[2020-07-12 21:42] LABS: BASOPHILS # (AUTO) 0.1 /CMM (0.0-0.2); BASOPHILS % (AUTO) 0.4 % (0.0-2.0); HEMATOCRIT 35 % (39-51); HEMOGLOBIN 11.5 g/dL (13.5-17.5); LYMPHOCYTES # (AUTO) 1.4 /CMM (0.8-4.8); LYMPHOCYTES % (AUTO) 9.3 % (20.0-44.0); MEAN CORPUSCULAR HGB CONC 33 g/dl (31.0-36.0); MEAN CORPUSCULAR VOLUME 82 fL (80-96); MONOCYTES # (AUTO) 1.3 /CMM (0.1-1.30); MONOCYTES % (AUTO) 8.6 % (2.0-12.0); NEUTROPHILS # (AUTO) 12.2 /CMM (1.8-8.9); NEUTROPHILS % (AUTO) 78.7 % (43.0-81.0); PLATELET COUNT (AUTO) 376 /CMM (150-450); RED BLOOD CELL COUNT(AUTO) 4.27 MIL/uL (4.5-6.0); WHITE BLOOD COUNT (AUTO) 15.6 K/uL (4.3-11.0)
[2020-07-12 21:44] LABS: CALCIUM, SERUM 9.1 mg/dL (8.5-10.1); POTASSIUM 3.9 mmol/L (3.5-5.1)
--- NOTE | 2020-07-12 21:48 | NUR ---
URINE COLLECTED AND SENT TO THE LAB.
[2020-07-12 21:57] LABS: BILIRUBIN,URINE Negative (NEGATIVE); BLOOD, URINE Trace-lysed Ery/uL (NEGATIVE); COLOR,URINE YELLOW (YELLOW); LEUKOCYTE ESTERASE ,URINE Negative (NEGATIVE); NITRITE, URINE Negative (NEGATIVE); PROTEIN,URINE Negative (NEGATIVE); UGLUCOSE Negative (NEGATIVE); UROBILINOGEN,URINE 0.2 EU/dL (0.2)
[2020-07-12 21:59] LABS: ALBUMIN 2.5 g/dL (3.4-5.0); BILIRUBIN,DIRECT 0.2 mg/dL (0.0-0.2); BILIRUBIN,TOTAL 0.5 mg/dL (0.2-1.0); TOTAL PROTEIN, SERUM 9.3 g/dL (6.4-8.2)
[2020-07-12 22:10] LABS: BACTERIA,URINE Few /HPF (None Seen); SQUAMOUS EPITHELIAL CELL,UR Few /HPF (None Seen); URINE AMORPHOUS URATE Few /HPF (None Seen); WBC,URINE 0-2 /HPF (0-3)
[2020-07-12 22:11] LABS: MUCUS,URINE Few /LPF (None Seen)
--- NOTE | 2020-07-12 22:48 | NUR ---
PT ASLEEP, EASILY AWAKEN BY VERBAL STIMULI & WILL GO BACK TO SLEEP. DENIES CP, SOB, DIZZINESS, N/V AT THIS TIME. WILL CONT TO MONITOR. ANABEL @ BS.
[2020-07-12 23:04] LABS: BAND % (MANUAL) 3 % (0.0-5.0); EOSINOPHILS % (MANUAL) 4 % (0-4); LYMPHOCYTES % (MANUAL) 7 % (16-48); METAMYELOCYTES % 2 % (0-0); MONOCYTES % (MANUAL) 10 % (0-11.0); MYELOCYTES % 1 % (0-0); NEUTROPHILS % (MANUAL) 72 (42-76); REACTIVE LYMPHOCYTES 1 % (0-0)
--- NOTE | 2020-07-13 02:10 | NUR ---
Patient is resting comfortably in bed with eyes closed. Easily aroused. VSS
--- NOTE | 2020-07-13 05:15 | NUR ---
PATIENT IS SLEEPING. PATIENT IS EASILY AROUSABLE TO NOISE. PATIENT IS BREATHING WIT EVEN RISE AND FALLING OF CHEST. PATIENT IS CONNECTED TO THE MONITOR. SITTER IS AT BEDSIDE.
--- NOTE | 2020-07-13 05:59 | NUR ---
PATIENT DENIES SUICIDAL IDEATION AND HOMICIDAL IDEATION, AMBULATORY TO THE RESTROOM WITH A STEADY GAIT. PATIENT STATES THAT HE FEELS BETTER AND WANTS TO LEAVE.
--- NOTE | 2020-07-13 06:08 | NUR ---
PATIENT IS ABLE TO WALK WITH STEADY GAIT. PATIENT IS AAOX4. PATIENT DOES NOT HAVE ANY C/O. PATIENT LEFT WITHOUT DISCHARGE INSTRUCTIONS.
[2020-07-13 06:31] VITALS: BP 122/79
== END 2020-07-13 06:10 | disposition home or self-care (01) ==
LOC: ER 20:04
DX: R45.851 Suicidal ideations (principal); R45.1 Restlessness and agitation; R45.6 Violent behavior; R60.0 Localized edema; D72.829 Elevated white blood cell count, unspecified; R74.01 Elevation of levels of liver transaminase levels; F20.9 Schizophrenia, unspecified; F31.9 Bipolar disorder, unspecified; Z59.0 Homelessness; Z79.899 Other long term (current) drug therapy
CPT/HCPCS: 36415; 80048; 80076; 80299; 80307; 80320; 81001; 85007; 85025; 96372 ×2; 99291; J1200; J1630; J2060; J3490; G0480

== ENCOUNTER 2021-05-07 00:08 | Emergency (ER) | payer OTHER ==
[~2021-05-07] VITALS: Ht 170.2 cm; Wt 136.1 kg
[2021-05-07 03:37] VITALS: BP 145/60
--- NOTE | 2021-05-07 03:37 | NUR ---
Patient discharged to home in stable condition. Written and verbal after care instructions given. Patient verbalizes understanding of instruction.
== END 2021-05-07 03:37 | disposition home or self-care (01) ==
LOC: ER 00:08
DX: Z71.1 Person with feared health complaint in whom no diagnosis is made (principal); Z20.822 Contact with and (suspected) exposure to COVID-19; Z59.0 Homelessness; F31.9 Bipolar disorder, unspecified; F20.9 Schizophrenia, unspecified
CPT/HCPCS: 71045; 87426; 99284; C9803

== ENCOUNTER → 2021-05-09 | Emergency (ER) | payer OTHER | END | disposition home or self-care (01) | LOC: ER 18:43 | DX: S13.8XXA Sprain of joints and ligaments of other parts of neck, initial encounter (principal); F31.9 Bipolar disorder, unspecified; F20.9 Schizophrenia, unspecified; Z59.0 Homelessness; Z79.899 Other long term (current) drug therapy; X58.XXXA Exposure to other specified factors, initial encounter; Y93.89 Activity, other specified; Y92.89 Other specified places as the place of occurrence of the external cause; Y99.8 Other external cause status ==

== ENCOUNTER 2021-07-07 18:43 | Inpatient (IN) | payer OTHER ==
[~2021-07-07] VITALS: Ht 172.7 cm; Wt 153.3 kg
--- NOTE | 2021-07-07 21:46 | NUR ---
US AT BEDSIDE
[2021-07-07] MEDS ORDERED: ENOXAPARIN SODIUM 120 MG/0.8 ML DISP.SYRIN SQ ONE (22:00)
--- NOTE | 2021-07-07 22:04 | NUR ---
MRSA SWAB COLLECTED AND SENT TO LAB. PATIENT'S BELONGINGS LIST DONE.
[2021-07-07] MEDS ORDERED: ENOXAPARIN SODIUM 30 MG/0.3 ML DISP.SYRIN ONE (22:08)
[2021-07-07] MEDS ORDERED: ENOXAPARIN SODIUM 100 MG/ML DISP.SYRIN SQ ONE (22:08)
[2021-07-07 22:28] LABS: BASOPHILS # (AUTO) 0.1 K/uL (0.0-0.2); BASOPHILS % (AUTO) 0.5 % (0.0-2.0); EOSINOPHILS % (AUTO) 3.1 % (0.0-6.0); HEMATOCRIT 34 % (39-51); LYMPHOCYTES # (AUTO) 1.5 K/uL (0.8-4.8); LYMPHOCYTES % (AUTO) 12.8 % (20.0-44.0); MEAN CORPUSCULAR HGB CONC 32 g/dl (31.0-36.0); MEAN CORPUSCULAR VOLUME 83 fL (80-96); MONOCYTES % (AUTO) 8.7 % (2.0-12.0); NEUTROPHILS # (AUTO) 8.8 K/uL (1.8-8.9); NEUTROPHILS % (AUTO) 74.9 % (43.0-81.0); PLATELET COUNT (AUTO) 409 K/uL (150-450); RED BLOOD CELL COUNT(AUTO) 4.11 MIL/uL (4.5-6.0); WHITE BLOOD COUNT (AUTO) 11.7 K/uL (4.3-11.0)
[2021-07-07 22:39] LABS: CALCIUM, SERUM 8.1 mg/dL (8.5-10.1); POTASSIUM 3.9 mmol/L (3.5-5.1)
--- NOTE | 2021-07-07 22:47 | NUR ---
per Pura caser in, verbal auth given to admit the pt
--- NOTE | 2021-07-07 23:09 | NUR ---
lisbet yousif on the phone with dr Alonzo called [facility] for tele PUI bed
[2021-07-08] MEDS ORDERED: ACETAMINOPHEN 325 MG TABLET PO PRN
[2021-07-08] MEDS ORDERED: Z GUARD REMEDY 2 OZ OINT TP PRN
[2021-07-08] MEDS ORDERED: ONDANSETRON HCL/PF 4 MG/2 ML VIAL IVP PRN
[2021-07-08] MEDS ORDERED: ZOLPIDEM TARTRATE 5 MG TABLET PO PRN
[2021-07-08] MEDS ORDERED: MAG HYDROX/AL HYDROX/SIMETH 30 ML UDC PO PRN
[2021-07-08] MEDS ORDERED: MAGNESIUM HYDROXIDE 30 ML UDC PO PRN
[2021-07-08] MEDS ORDERED: HYDROCODONE/APAP 5/325MG TABLET PO PRN
--- NOTE | 2021-07-08 00:40 | NUR ---
RECIEVED BED 117-1
--- NOTE | 2021-07-08 00:59 | NUR ---
report given to jw on first floor
[2021-07-08 01:17] LABS: EOSINOPHILS % (MANUAL) 2 % (0-4); LYMPHOCYTES % (MANUAL) 18 % (16-48); METAMYELOCYTES % 1 % (0-0); MONOCYTES % (MANUAL) 6 % (0-11.0); MYELOCYTES % 1 % (0-0); NEUTROPHILS % (MANUAL) 71 (42-76); REACTIVE LYMPHOCYTES 1 % (0-0)
[2021-07-08 01:46] VITALS: BP 117/68
--- NOTE | 2021-07-08 01:50 | NUR ---
PT TRANSPORTED TO UNIT ON [place] WITH EMT AND RN AT BEDSIDE WITH ACLS PROTOCOL. NAD NOTED DURING TRANSPORT.
--- NOTE | 2021-07-08 02:00 | NUR ---
RN ADMIN NOTE RECEVED PATIENT FROM VONDA,A/O *1 , LETHARGIC, FALLING ASLEEP, NOT ABLE TO ANSWERS QUESTIONS, OR FOCUS, FALLS ASLEEP DESPITE REPITIVE ATTEMPTS TO ASSES HIM. PATIENT IS TOLERATING ROOM AIR, RESPIRATIONS ARE EQUAL, UNLABORED BREATHING, NO S/S OF SOB, NO COMPLAINS OF PAIN AND NO DISTRESS. IV ACCES , LEFT AC. UNABLE TO UNDERSTAND PATIENT CLEARLY. BED LOW POSITION, LOCKED, SIDE RAILS UP *3 , SUPINE POSITION. CALL LIGHT WITHIN REACH.KETTLE GIRL OBTAINED VITALS AND COMPLETED THE BELONGINGS LIST. SKIN ASSESEMENT DONE, PHOTO TAKEN, PLACES IN CHART.
[2021-07-08 05:17] VITALS: BP 117/68
--- NOTE | 2021-07-08 06:41 | NUR ---
RN NOTE PATIENT IN BED, RESTING, REMAINS ON ROOM AIR, NO DISTRESS NOTED OR PAIN EXPRESSED. BED LOCKED, PATIENT IS RESTING, WITH NO LABORED BREATHING OR DISTRESS. PATIENT IS ON TELE MONITOR, SR. CALL LIGHT WITHIN REACH, WILL ENDORSE THE ONCOMING SHIFT.
[2021-07-08] MEDS: PANTOPRAZOLE 40 MG TABLET.DR PO SCH (07:30)
--- NOTE | 2021-07-08 08:01 | NUR ---
RN OPENING NOTE PATIENT RECEIVED ASLEEP IN BED, NOT IN DISTRESS, CONTINUES IN ROOM AIR. ALERT AND ORIENTED X3. G20 MED LOCK IN PLACE AND FLUSHING WELL. PATIENT REFUSED AM MEDS PROTONIX 40 MG, EXPLAINED IMPORTANCE OF MEDICATION AND PATIENT CONTINUES TO REFUSE. PATIENT HAS HX OF SCHIZO AND BIPOLAR DISORDER. PATIENT HAS NO SS OF ACID REFLUX, NO COMPLAINTS OF ABD PAIN/DISCOMFORT AT THIS TIME. WILL CONTINUE TO MONITOR. V/S WNL. SAFETY MEASURES FOLLOWED.
[2021-07-08] MEDS: ENOXAPARIN SODIUM 120 MG/0.8 ML DISP.SYRIN SQ SCH ×2 (09:54→21:14)
--- NOTE | 2021-07-08 10:12 | NUR ---
WOUND CARE CONSULT: REVIEWED CHART, NURSING DOCUMENTATION AND PHOTO WHICH INDICATES LOWER EXTREMITY DISCOLORATION, POSSIBLE ESCHAR, PRESENT ON ADMISSION. DPM CONSULT CALLED TO DR HAMPAPUR. TOMAS IN AGREEMENT WITH PLAN OF CARE. Addendum: 07/08/21 at 1014 by RISA PERDOMO WNDNU CURRENT QUINCY SCORE IS 14.
--- NOTE | 2021-07-08 11:13 | NUR ---
patient refusing lab draw ,greta holt aware ordered psyche consult,face sheet faxed to gps,awaits dr. snyder to see pt.
[2021-07-08] MEDS ORDERED: OLANZAPINE 10 MG VIAL IM PRN (15:30)
--- NOTE | 2021-07-08 16:05 | NUR ---
SS consult for homelessness requested. SW will follow up. Per CM, pt. interested in sober living facility. SW will follow up.
--- NOTE | 2021-07-08 16:29 | NUR ---
RN NOTE URINE SPECIMEN COLLECTED AND PICKED UP BY LAB.
[2021-07-08] MEDS: risperiDONE 0.25 MG TABLET PO SCH (18:00)
[2021-07-08] MEDS: BENZTROPINE MESYLATE (1 MG) 1 MG TABLET PO SCH (18:00)
--- NOTE | 2021-07-08 18:11 | NUR ---
RN NOTE PATIENT REFUSED ANTIPSYCHOTIC MEDICATION RISPERDAL AND COGENTIN. NO BEHAVIORAL/PSYCHOTIC EPISODES NOTED AT THIS TIME. WILL CONTINUE TO MONITOR AND ENDORSE TO NEXT SHIFT. VITAL SIGNS WITHIN NORMAL RANGE, NO SOB NOTED. ALL SAFETY MEASURES FOLLOWED. CALL MERCER WITHIN REACH.
--- NOTE | 2021-07-08 19:36 | NUR ---
RN OPENING NOTES: RECEIVED PATIENT FROM DAY SHIFT, PATIENT IN BED, SLEEPING, V/S STABLE, NO SIGNS OF DISTRESS, NO SOB, ON RA(ROOM AIR), IV ACCESS RT. HAND GAUGE 20 PATENT AND INTACT. BED AT LOWEST POSITION, BRAKES LOCKED, SIDE RAILS UP X2, CALL LIGHT WITHIN REACH,
[2021-07-08 20:00] VITALS: BP 123/78
[2021-07-08 20:19] LABS: BILIRUBIN,URINE NEGATIVE (NEGATIVE); COLOR,URINE YELLOW (YELLOW); LEUKOCYTE ESTERASE ,URINE NEGATIVE (NEGATIVE); NITRITE, URINE NEGATIVE (NEGATIVE); PROTEIN,URINE NEGATIVE (NEGATIVE); UGLUCOSE NEGATIVE (NEGATIVE)
--- NOTE | 2021-07-09 06:44 | NUR ---
RN CLOSING NOTES: PATIENT IS SLEEPING IN BED, CALL LIGHT WITHIN REACH, SIDE RAILS UP X2, BED LOCKED AND IN LOWEST POSITION, A/O X3, SR, ON ROOM AIR, SATURATION 99%, SKIN 0 L. ANKLE/LOWER EXTREMITY, PT ON FALL RISK, VITALS WNL, LT. AC #20, REFUSES PSYCH MEDS, CONTINUE TELEMETRY, ASPIRATION PRECAUTIONS, PT IS HOMELESS - PRINCIPAL GIFTS OFFICER REQUIRED FOR CONSULT, CARDIAC DIET, PCR PENDING. WILL CONTINUE TO MONITOR AND ENDORSE TO DAY SHIFT NURSE.
--- NOTE | 2021-07-09 07:30 | NUR ---
RN OPENING NOTES RECEIVED PATIENT IS IN BED, AXO 3. PATIENT IS ROOM AIR, BREATHING IS EVEN AND NON LABORED, NO DISTRESS NOTED AT THIS TIME. SIDE RAILS UP X2, BED LOCKED AND IN LOWEST POSITION AND CALL LIGHT WITHIN REACH. SKIN 0 L. ANKLE/LOWER EXTREMITY, PT ON FALL RISK, VITALS STABLE, LT. AC #20, INTACT AND PATENT. REFUSES PSYCH MEDS. ASPIRATION PRECAUTIONS, WILL CONTINUE TO MONITOR
[2021-07-09] MEDS: NICOTINE PATCH (7MG) 7 MG PATCH.TD24 TD SCH ×2 (09:30→09:40)
[2021-07-09] MEDS: PANTOPRAZOLE 40 MG TABLET.DR PO SCH ×2 (09:30→09:42)
[2021-07-09] MEDS: ENOXAPARIN SODIUM 120 MG/0.8 ML DISP.SYRIN SQ SCH (09:33)
--- NOTE | 2021-07-09 14:41 | NUR ---
"SS consult : SS consult requested for homelessness. Pt. is a 25-year-old male who was brought in by EMS for left lower leg, left foot pain and swelling for x1 week per EMR. Upon SS Consult, pt. is alert and oriented x4 and appears unkempt. Pt. presented with a dysphoric mood and circumstantial thought process. Pt. provided poor eye contact during assessment. Pt. was cooperative throughout assessment. SW explored pt.s social support. Pt. stated he had no friends or family. JULIO explored pt.s living situation. Pt. stated he has been homeless off and on for eight years. SW explored if pt. was ambulatory. Pt. stated he is ambulatory and uses a walker. SW explored pt. 's financial status. Pt. stated they did not receive food stamps, general relief, social security or disability. Pt. stated they needed to reapply. SW explored pt.s substance abuse history. Pt. requested a sober living facility. Pt. denied alcohol use. Pt. stated they have been taking Risperdal and Cogentin since the age of 16. Pt. stated that these medications make me more psychotic. JULIO provided sober living resources and pt. accepted them and stated he will follow up and contact them for availability. JULIO explored psychiatric history. Pt. stated he is diagnosed with Schizoaffective disorder. Pt. stated he no longer takes psychiatric medication. Pt. denied visual/auditory hallucinations. Pt. denied suicidal/homicidal ideation. Plan: JULIO faxed clinicals to [facility] [[id number] [facility] [address] ([phone])] and provided referrals to sober living facilities. Pt. signed homeless waiver and it was placed in the pt.s chart. Pt. agreeable to long-term placement in the meantime while he find sober living. JULIO spoke with pt.'s nurse and there is no DC order yet. JULIO will assist pt. with long-term placement the day of DC. JULIO provided the following homeless resources and he accepted them: Year-round shelters: [facility] [place] [address] [place] [address] ; [facility] [place] [address] [place] [address]; [facility] [id number] [facility]. [facility] [address] Winter Shelters: Jailene Asher [place] Provider: [facility] [place] Address: [address], [address] # of Beds: 47 Population Served: [facility] 6 | [facility] Tamica Childress [place] Provider: [facility] Address: [address] [place] [address], [address] # of Beds: 66 Population Served: [facility] Dorcas [place] Provider: [facility] Address: [address] [facility], [address] # of Beds: 56 Population Served: [facility] [place] Provider: [facility] Address: [address] [facility], [address] # of Beds: 49 Population Served: [facility] 8 | [facility] Provider: [facility] Serve Address: [address] [facility], [address] # of Beds: 37 Population Served: [facility] Hygiene: [facility]: [address] [facility] ; [facility] [address] [facility] ; [facility] [address] [facility] . Food Resources: [employer] [facility] at [facility]- [address] [facility]; Meet Each Need with Dignity ([facility]) [address] [facility] [place]; [facility] [address] [facility]; [facility] [address] [facility]. Mental Health resources provided: [facility] [address] [place] [address] ; [facility] [address] [facility] [address], [place] [address] ; Latoya Costello [facility] [address] [place] [address] ; [facility] [place], [place] [id number] Healthcare Clinics: [facility] [address], [address] [place]. [place] ; [facility] [address] [facility] [address] [place] [address]; [facility] [address] [facility] [address] [phone] Counseling--Outpatient [facility] [address] [facility], [place] [address] (Specializes in in-depth psychotherapy for emotional distress: anxiety, depression, interpersonal conflicts, life transitions, childhood abuse) [facility] [address] [place] [address] (Assist with solving problem marital difficulties, separation & divorce, aging parents, & grief, chronic & terminal illness) [facility] [address] [place] [address] (Deal with loss & grief, anxiety, marital difficulties) Homebound/Mental Health Services [address], [address] [place] [address] (Provide in-home mental services to people who are incapable of leaving their homes) [facility] for Needs of the Elderly Senior Service/Resource Center [address] [place] [address] [facility] [address] [facility] [place] [address] PSYCHIATRIC OUTPATIENT SERVICES [facility] Partial Hospitalization and Intensive Outpatient Program (Managed Care and [place] Only)[address] [address] [facility] [phone] [facility] Partial Hospitalization and Outpatient [id number] [place], [place] [phone] [facility] Critical access hospital [facility] [place] [id number] [place], [place] [phone] [facility] [address] Partial Hospitalization and Outpatient [id number] Venus Valenzuela, [phone] Substance Abuse resources provided included: [facility] Substance Abuse Self-Helpline ([facility]) ; [facility] [address] [facility], [facility]. [place] [address] ; [facility] [place] [address] [facility] [address] ; [facility] [address] [place] [facility] [address] ; [facility] [address] [facility] [address] ; [facility] [address] [facility] [phone] ; [facility] [address] [facility] [phone] ; [facility] Substance Abuse Helpline([facility])-[facility] ; [facility] ; [facility] [place]; [facility] [place]; [facility] [place]; [facility] [address]; [facility] [place]; [place]; [facility] [place]; [facility], [facility]. [place]; Alcoholics Anonymous -SFV; Hx-Vqcv-Bxdixku ; Marijuana Anonymous -[facility]; Narcotics Anonymous www.na.org;"
--- NOTE | 2021-07-09 15:10 | NUR ---
Patient refused partial labs, provider notified
[2021-07-09 15:37] LABS: IRON, SERUM 31 ug/dl (50-175); TOTAL IRON BINDING CAPACITY 199 ug/dl (250-450)
--- NOTE | 2021-07-09 15:44 | NUR ---
followup with [facility] patient covid pcr negative.
[2021-07-09] MEDS: BENZTROPINE MESYLATE (1 MG) 1 MG TABLET PO SCH (17:06)
[2021-07-09] MEDS: risperiDONE 0.25 MG TABLET PO SCH (17:07)
[2021-07-09] MEDS ORDERED: APIX5TAB PO (17:41)
--- NOTE | 2021-07-09 18:02 | NUR ---
RN NOTE patient Left Lower extremity was wrapped with gerlex
--- NOTE | 2021-07-09 18:12 | NUR ---
RN NOTES PATIENT REFUSED TO SIGN DISCHARGE INSTRUCTIONS; BUT EDUCATION AND INSTRUCTION PROVIDED TO PATIENT. ALSO REFUSED FOR STAFF TO TAKE PICTURE OF SKIN CONDITION. EXPLAINED PURPOSE TO PATIENT BUT STILL REFUSED; RIGHT TO REFUSE RESPECTED.
--- NOTE | 2021-07-09 18:30 | NUR ---
STREET DEPARTMENT DISPATCHER NOTES PT SEEN BY GARY WAITE TODAY, WITH ORDER FOR DISCHARGE TO SELF. SEEN BY BAND MACHINE OPERATOR AND PROVIDE RESOURCES. DISCHARGE INSTRUCTION AND EDUCATION PROVIDED TO PATIENT. NAME ARM BAND,IV LINE REMOVED.PATIENT REFUSED PICTURES OF SKIN ISSUE TO BE TAKEN.PATIENT BELONGINGS ALL ACCOUNTED FOR. PATIENT CIGARETTE AND PERSONAL MEDICATIONS GIVEN BACT TO PATIENT.PATIENT ACCOMPANY TO THE LOBBY AND WILL TAKE PUBLIC TRANSPORTATION. CHARGE NURSE AND MD AWARE DISCHARGE.
[2021-07-10] MEDS ORDERED: VITAMINS A AND D 56.7 GM TUBE TP SCH (09:00)
[2021-07-12 13:06] LABS: *THROMBIN TIME 20.3 sec (0.0-23.0); *dPT CONFIRM RATIO 0.86 Ratio (0.00-1.34); *dRVVT 26.4 sec (0.0-47.0)
[2021-07-12 23:06] LABS: *CARD ANTI-CARDIOLIPIN AB IgG <9 GPL U/mL (0-14); *CARD ANTI-CARDIOLIPIN AB IgM 15 MPL U/mL (0-12)
== END 2021-07-09 18:23 | disposition home or self-care (01) | DRG 197 ==
LOC: ER 18:55 → TELE1 07-08 00:41 → MEDSG1 07-08 08:14
PROVIDERS: ADMIT Student in an Organized Health Care Education/Training Program; ATTEND Registered Nurse
DX: I82.412 Acute embolism and thrombosis of left femoral vein (principal); Z68.43 Body mass index [BMI] 50.0-59.9, adult; D64.9 Anemia, unspecified; D72.829 Elevated white blood cell count, unspecified; F20.9 Schizophrenia, unspecified; Z20.822 Contact with and (suspected) exposure to COVID-19; Z59.00 Homelessness unspecified; F31.9 Bipolar disorder, unspecified; Z79.899 Other long term (current) drug therapy; L85.3 Xerosis cutis; E66.01 Morbid (severe) obesity due to excess calories; Z91.14 Patient's other noncompliance with medication regimen; Z72.0 Tobacco use
CPT/HCPCS: 36415; 71045-TC; 80048-TC; 82728-TC; 83540-TC; 84443-TC; 85025-TC; 85613; 85670; 85705; 85730-TC; 85732; 86147; 87081-TC; 93971-TC; C9803; G0378; J1650; U0003

== ENCOUNTER 2021-07-18 00:36 | Emergency (ER) | payer OTHER ==
[~2021-07-18] VITALS: Ht 177.8 cm; Wt 136.1 kg
[~2021-07-18 00:36] MED LIST changes: +APIX5TAB PO
[2021-07-18] MEDS ORDERED: APIX5TAB PO (00:54)
[2021-07-18 01:06] VITALS: BP 134/70
--- NOTE | 2021-07-18 01:09 | NUR ---
Patient discharged to home in stable condition. Written and verbal after care instructions given. Patient verbalizes understanding of instruction. RX GIVEN
== END 2021-07-18 01:22 | disposition home or self-care (01) ==
LOC: ER 00:38
DX: M79.605 Pain in left leg (principal); Z76.0 Encounter for issue of repeat prescription; Z86.718 Personal history of other venous thrombosis and embolism; Z59.00 Homelessness unspecified; Z79.899 Other long term (current) drug therapy; Z79.01 Long term (current) use of anticoagulants

== ENCOUNTER 2022-10-13 20:15 | Emergency (ER) | payer OTHER ==
[~2022-10-13] VITALS: Ht 177.8 cm; Wt 136.1 kg
[2022-10-13 21:47] LABS: BILIRUBIN,URINE NEGATIVE (NEGATIVE); COLOR,URINE YELLOW (YELLOW); LEUKOCYTE ESTERASE ,URINE NEGATIVE (NEGATIVE); NITRITE, URINE NEGATIVE (NEGATIVE); PROTEIN,URINE 1+ mg/dl (NEGATIVE); UGLUCOSE NEGATIVE (NEGATIVE)
[2022-10-13 22:08] LABS: BACTERIA,URINE Moderate /HPF (None Seen); SQUAMOUS EPITHELIAL CELL,UR Few /HPF (None Seen); WBC,URINE 0-2 /HPF (0-3)
--- NOTE | 2022-10-13 22:10 | NUR ---
PT ESCORTED OUT FOR DC WITH SECURITY
[2022-10-13 22:14] LABS: BASOPHILS % (AUTO) 0.7 % (0.0-2.0); EOSINOPHILS % (AUTO) 3.4 % (0.0-6.0); HEMATOCRIT 40 % (39-51); HEMOGLOBIN 12.8 g/dL (13.5-17.5); LYMPHOCYTES # (AUTO) 1.2 K/uL (0.8-4.8); LYMPHOCYTES % (AUTO) 22.2 % (20.0-44.0); MEAN CORPUSCULAR HGB CONC 32 g/dl (31.0-36.0); MEAN CORPUSCULAR VOLUME 80 fL (80-96); MONOCYTES # (AUTO) 0.8 K/uL (0.1-1.30); MONOCYTES % (AUTO) 15.6 % (2.0-12.0); NEUTROPHILS # (AUTO) 3.2 K/uL (1.8-8.9); NEUTROPHILS % (AUTO) 58.1 % (43.0-81.0); PLATELET COUNT (AUTO) 292 K/uL (150-450); RED BLOOD CELL COUNT(AUTO) 4.99 MIL/uL (4.5-6.0); WHITE BLOOD COUNT (AUTO) 5.5 K/uL (4.3-11.0)
[2022-10-13 22:49] LABS: ALANINE AMINOTRANSFERASE 44 U/L (12-78); ALCOHOL, BLOOD < 3 mg/dL (0-0); ALKALINE PHOSPHATASE 65 U/L (46-116); ASPARTATE AMINOTRANSFERASE 37 U/L (15-37); BILIRUBIN,DIRECT 0.1 mg/dL (0.0-0.2); BILIRUBIN,TOTAL 0.2 mg/dL (0.2-1.0); CALCIUM, SERUM 8.4 mg/dL (8.5-10.1); CARBON DIOXIDE 25 mmol/L (21-32); CHLORIDE 101 mmol/L (98-107); GLUCOSE 114 mg/dL (74-106); POTASSIUM 3.6 mmol/L (3.5-5.1); SODIUM SERUM 135 mmol/L (136-145); TOTAL PROTEIN, SERUM 9.2 g/dL (6.4-8.2); UREA NITROGEN, BLOOD 17 mg/dL (7-18)
[2022-10-13 23:27] VITALS: BP 142/78
[2022-10-14 12:06] LABS: LYMPHOCYTES % (MANUAL) 21 % (16-48); NEUTROPHILS % (MANUAL) 60 (42-76)
[2022-10-14 12:07] LABS: BASOPHILS % (MANUAL) 0 % (0.0-2.0); EOSINOPHILS % (MANUAL) 3 % (0-4); MONOCYTES % (MANUAL) 16 % (0-11.0)
== END 2022-10-13 23:29 | disposition home or self-care (01) ==
LOC: ER 20:16
DX: R46.1 Bizarre personal appearance (principal)
CPT/HCPCS: 36415; 80048-TC; 80076-TC; 81001; 85025-TC; 87086-TC; G0480

== ENCOUNTER 2024-12-23 19:59 | Inpatient (IN) | payer OTHER ==
[~2024-12-23] VITALS: Ht 172.7 cm; Wt 210.9 kg
[2024-12-23 23:01] LABS: BASOPHILS # (AUTO) 0.1 K/uL (0.0-0.2); BASOPHILS % (AUTO) 0.9 % (0.0-2.0); EOSINOPHILS # (AUTO) 0.5 K/uL (0.0-0.7); EOSINOPHILS % (AUTO) 5.5 % (0.0-6.0); HEMATOCRIT 37 % (39-51); HEMOGLOBIN 12.3 g/dL (13.5-17.5); LYMPHOCYTES # (AUTO) 1.8 K/uL (0.8-4.8); LYMPHOCYTES % (AUTO) 21.5 % (20.0-44.0); MEAN CORPUSCULAR HEMOGLOBIN 27 PG (26.0-33.0); MEAN CORPUSCULAR HGB CONC 33 g/dl (31.0-36.0); MEAN CORPUSCULAR VOLUME 80 fL (80-96); MONOCYTES # (AUTO) 0.7 K/uL (0.1-1.30); MONOCYTES % (AUTO) 8.1 % (2.0-12.0); NEUTROPHILS # (AUTO) 5.3 K/uL (1.8-8.9); PLATELET COUNT (AUTO) 384 K/uL (150-450); RED BLOOD CELL COUNT(AUTO) 4.63 MIL/uL (4.5-6.0); RED CELL DISTRIBUTION WIDTH 15.1 % (11.5-15.0); WHITE BLOOD COUNT (AUTO) 8.3 K/uL (4.3-11.0)
[2024-12-23 23:10] LABS: CALCIUM, SERUM 8.8 mg/dL (8.5-10.1); CARBON DIOXIDE 31 mmol/L (21-32); CHLORIDE 103 mmol/L (98-107); CREATININE 0.8 mg/dL (0.6-1.3); GLUCOSE 88 mg/dL (74-106); SODIUM SERUM 139 mmol/L (136-145); UREA NITROGEN, BLOOD 12 mg/dL (7-18)
[2024-12-23 23:22] LABS: ALANINE AMINOTRANSFERASE 28 U/L (12-78); ALBUMIN 3.1 g/dL (3.4-5.0); ALCOHOL, BLOOD < 3 mg/dL (0-10); ALKALINE PHOSPHATASE 81 U/L (46-116); ASPARTATE AMINOTRANSFERASE 17 U/L (15-37); BILIRUBIN,TOTAL 0.2 mg/dL (0.2-1.0); NT-PRO BNP 58 pg/mL (0-125); TOTAL PROTEIN, SERUM 8.7 g/dL (6.4-8.2)
[2024-12-23 23:29] LABS: APPEARANCE,URINE CLEAR (CLEAR); BILIRUBIN,URINE NEGATIVE (NEGATIVE); BLOOD, URINE NEGATIVE Ery/uL (NEGATIVE); COLOR,URINE YELLOW (YELLOW); KETONES,URINE NEGATIVE (NEGATIVE); LEUKOCYTE ESTERASE ,URINE NEGATIVE (NEGATIVE); NITRITE, URINE NEGATIVE (NEGATIVE); PROTEIN,URINE NEGATIVE (NEGATIVE); UGLUCOSE NEGATIVE (NEGATIVE); UROBILINOGEN,URINE 0.2 EU/dL (0.2)
[2024-12-23 23:38] LABS: AMPHETAMINE, URINE NEGATIVE (NEGATIVE); BARBITURATE, URINE NEGATIVE (NEGATIVE); BENZODIAZEPINE, URINE NEGATIVE (NEGATIVE); CANNABINOID, URINE NEGATIVE (NEGATIVE); COCCAINE, URINE NEGATIVE (NEGATIVE); OPIATE, URINE NEGATIVE (NEGATIVE); PHENCYCLIDINE SCREEN,URINE NEGATIVE (NEGATIVE)
[2024-12-24 03:35] VITALS: O2SAT 99
[2024-12-24] MEDS ORDERED: ACETAMINOPHEN 325 MG TABLET PO PRN (04:30)
[2024-12-24] MEDS ORDERED: MAGNESIUM HYDROXIDE 30 ML UDC PO PRN (04:30)
[2024-12-24] MEDS ORDERED: MAG HYDROX/AL HYDROX/SIMETH 30 ML UDC PO PRN (04:30)
[2024-12-24] MEDS ORDERED: ONDANSETRON HCL/PF 4 MG/2 ML VIAL IVP PRN (04:30)
[2024-12-24 05:00] VITALS: BP 138/75; TEMP 97.5; O2SAT 96
[2024-12-24] MEDS ORDERED: BENZ2AMP3 PO (05:23)
[2024-12-24] MEDS ORDERED: RISP3TAB5 PO (05:23)
[2024-12-24] MEDS ORDERED: BENZ2TAB7 PO (07:59)
[2024-12-24 08:11] VITALS: BP 115/63; TEMP 98.2; O2SAT 96
[2024-12-24 11:11] LABS: BASOPHILS # (AUTO) 0.1 K/uL (0.0-0.2); BASOPHILS % (AUTO) 0.7 % (0.0-2.0); EOSINOPHILS # (AUTO) 0.4 K/uL (0.0-0.7); EOSINOPHILS % (AUTO) 5.5 % (0.0-6.0); HEMATOCRIT 38 % (39-51); HEMOGLOBIN 12.4 g/dL (13.5-17.5); LYMPHOCYTES # (AUTO) 1.1 K/uL (0.8-4.8); LYMPHOCYTES % (AUTO) 15.7 % (20.0-44.0); MEAN CORPUSCULAR HEMOGLOBIN 26 PG (26.0-33.0); MEAN CORPUSCULAR HGB CONC 32 g/dl (31.0-36.0); MEAN CORPUSCULAR VOLUME 80 fL (80-96); MONOCYTES # (AUTO) 0.6 K/uL (0.1-1.30); MONOCYTES % (AUTO) 8.9 % (2.0-12.0); NEUTROPHILS # (AUTO) 4.9 K/uL (1.8-8.9); NEUTROPHILS % (AUTO) 69.2 % (43.0-81.0); PLATELET COUNT (AUTO) 354 K/uL (150-450); RED BLOOD CELL COUNT(AUTO) 4.77 MIL/uL (4.5-6.0); RED CELL DISTRIBUTION WIDTH 15.1 % (11.5-15.0)
[2024-12-24 11:28] LABS: CALCIUM, SERUM 8.7 mg/dL (8.5-10.1); CREATININE 0.8 mg/dL (0.6-1.3); MAGNESIUM 2.1 mg/dL (1.8-2.4); PHOSPHORUS 4.2 mg/dL (2.5-4.9)
[2024-12-24 16:06] VITALS: BP 110/66; TEMP 97.7; O2SAT 100
[2024-12-24 20:43] VITALS: BP 142/93; TEMP 98.1; O2SAT 98
[2024-12-25 04:22] VITALS: BP 119/66; TEMP 98.1; O2SAT 98
[2024-12-25 08:13] VITALS: BP 122/66; TEMP 97.9; O2SAT 100
[2024-12-25] MEDS: risperiDONE 1 MG TABLET PO SCH (09:09)
[2024-12-25] MEDS: BENZTROPINE MESYLATE (1 MG) 1 MG TABLET PO SCH (09:09)
[2024-12-25] MEDS: NEOMY SULF/BACITRAC ZN/POLY 15 GM TUBE TP SCH (10:00)
== END 2024-12-25 11:00 | disposition home or self-care (01) | DRG 203 ==
LOC: ER 20:02 → TELE 12-24 04:19
DX: R07.9 Chest pain, unspecified (principal); Z68.45 Body mass index [BMI] 70 or greater, adult; D64.9 Anemia, unspecified; E66.01 Morbid (severe) obesity due to excess calories; F31.9 Bipolar disorder, unspecified; Z79.01 Long term (current) use of anticoagulants; Z86.711 Personal history of pulmonary embolism; Z79.899 Other long term (current) drug therapy; Z86.718 Personal history of other venous thrombosis and embolism; F17.200 Nicotine dependence, unspecified, uncomplicated; Z59.00 Homelessness unspecified; F20.9 Schizophrenia, unspecified
CPT/HCPCS: 36415; 71045-TC; 80048-TC; 80053-TC; 83735-TC; 83880; 84100-TC; 84484-TC; 85025-TC; 85378-TC; 93970-TC; 98960; G0378; G0480

== ENCOUNTER 2025-01-23 15:01 | Inpatient (IN) | payer OTHER ==
[~2025-01-23] VITALS: Ht 172.7 cm; Wt 210.0 kg
[~2025-01-23 15:01] MED LIST changes: -APIX5TAB PO; -RISP0.2515 PO; +RISP3TAB5 PO
[2025-01-23 15:48] LABS: APPEARANCE,URINE CLEAR (CLEAR); BILIRUBIN,URINE Negative (NEGATIVE); BLOOD, URINE Negative Ery/uL (NEGATIVE); COLOR,URINE YELLOW (YELLOW); KETONES,URINE Negative (NEGATIVE); LEUKOCYTE ESTERASE ,URINE Negative (NEGATIVE); NITRITE, URINE NEGATIVE (NEGATIVE); PH,URINE 5.5 (5.0-8.0); PROTEIN,URINE Trace mg/dl (NEGATIVE); UGLUCOSE Negative (NEGATIVE); UROBILINOGEN,URINE 0.2 EU/dL (0.2)
[2025-01-23 15:56] LABS: ADD URINE CULTURE NO; AMPHETAMINE, URINE NEGATIVE (NEGATIVE); BACTERIA,URINE None seen /HPF (None Seen); BARBITURATE, URINE NEGATIVE (NEGATIVE); BENZODIAZEPINE, URINE NEGATIVE (NEGATIVE); CANNABINOID, URINE NEGATIVE (NEGATIVE); COCCAINE, URINE NEGATIVE (NEGATIVE); OPIATE, URINE NEGATIVE (NEGATIVE); PHENCYCLIDINE SCREEN,URINE NEGATIVE (NEGATIVE); RBC,URINE 0-2 /HPF (0-2); SQUAMOUS EPITHELIAL CELL,UR None Seen /HPF (None Seen); WBC,URINE 0-2 /HPF (0-3)
[2025-01-23] MEDS: IV NS 0.9% 1,000 ML BAG IV ONE (16:10)
[2025-01-23 16:13] LABS: BASOPHILS % (AUTO) 0.5 % (0.0-2.0); EOSINOPHILS # (AUTO) 0.3 K/uL (0.0-0.7); EOSINOPHILS % (AUTO) 3.9 % (0.0-6.0); HEMATOCRIT 37 % (39-51); LYMPHOCYTES # (AUTO) 1.4 K/uL (0.8-4.8); LYMPHOCYTES % (AUTO) 19.6 % (20.0-44.0); MEAN CORPUSCULAR HEMOGLOBIN 26 PG (26.0-33.0); MEAN CORPUSCULAR HGB CONC 33 g/dl (31.0-36.0); MEAN CORPUSCULAR VOLUME 81 fL (80-96); MONOCYTES # (AUTO) 0.6 K/uL (0.1-1.30); MONOCYTES % (AUTO) 8.1 % (2.0-12.0); NEUTROPHILS # (AUTO) 4.7 K/uL (1.8-8.9); NEUTROPHILS % (AUTO) 67.9 % (43.0-81.0); PLATELET COUNT (AUTO) 375 K/uL (150-450); RED BLOOD CELL COUNT(AUTO) 4.55 MIL/uL (4.5-6.0); RED CELL DISTRIBUTION WIDTH 14.7 % (11.5-15.0); WHITE BLOOD COUNT (AUTO) 6.9 K/uL (4.3-11.0)
[2025-01-23] MEDS ORDERED: IV NS 0.9% 250 ML IV ONE ×2 (16:15→18:06)
[2025-01-23] MEDS ORDERED: IOHEXOL-350 100 ML VIAL IV ONE ×2 (16:15→18:06)
[2025-01-23 16:22] LABS: CALCIUM, SERUM 8.6 mg/dL (8.5-10.1); CARBON DIOXIDE 30 mmol/L (21-32); CHLORIDE 103 mmol/L (98-107); CREATININE 0.9 mg/dL (0.6-1.3); GLUCOSE 121 mg/dL (74-106); POTASSIUM 4.5 mmol/L (3.5-5.1); SODIUM SERUM 137 mmol/L (136-145); UREA NITROGEN, BLOOD 10 mg/dL (7-18)
[2025-01-23 16:27] LABS: INR 1.04 (0.91-1.10); PARTIAL THROMBOPLASTIN TIME 22.1 SEC (24.3-34.3); PROTHROMBIN TIME 10.7 SECS (9.2-11.1)
[2025-01-23 16:36] LABS: ACETAMINOPHEN <10 ug/ml (10-30); ALANINE AMINOTRANSFERASE 37 U/L (12-78); ALBUMIN 2.8 g/dL (3.4-5.0); ALCOHOL, BLOOD < 3 mg/dL (0-10); ALKALINE PHOSPHATASE 70 U/L (46-116); ASPARTATE AMINOTRANSFERASE 34 U/L (15-37); BILIRUBIN,DIRECT 0.1 mg/dL (0.0-0.2); BILIRUBIN,TOTAL 0.4 mg/dL (0.2-1.0); SALICYLATE 1.6 mg/dL (2.8-20.0); TOTAL PROTEIN, SERUM 8.7 g/dL (6.4-8.2)
[2025-01-23] MEDS ORDERED: ACETAMINOPHEN 325 MG TABLET ONE (17:18)
[2025-01-23] MEDS: ACETAMINOPHEN 325 MG TABLET PO ONE (17:23)
[2025-01-23] MEDS ORDERED: hydrALAZINE HCL IV 20 MG VIAL IV PRN (21:00)
[2025-01-23] MEDS ORDERED: ONDANSETRON HCL/PF 4 MG/2 ML VIAL IVP PRN (21:00)
[2025-01-23] MEDS ORDERED: MORPHINE SULFATE INJ 2 MG/ML DISP.SYRIN IV PRN (21:00)
[2025-01-23] MEDS ORDERED: ACETAMINOPHEN 325 MG TABLET PO PRN (21:00)
[2025-01-23] MEDS ORDERED: ASPIRIN 81 MG TAB.CHEW ONE (21:07)
[2025-01-23] MEDS: ASPIRIN 81 MG TAB.CHEW PO ONE (21:10)
[2025-01-23 23:00] VITALS: BP 133/76; TEMP 97.5; O2SAT 100
[2025-01-23] MEDS: HEPARIN SODIUM, PORCINE 5000 UNITS/1 ML VIAL SQ SCH (23:22)
[2025-01-23] MEDS ORDERED: APIXABAN 5 MG TABLET PO SCH (23:30)
[2025-01-24] MEDS: APIXABAN 5 MG TABLET PO NR (00:17)
[2025-01-24 04:00] VITALS: BP 108/66; TEMP 97.5; O2SAT 97
[2025-01-24 08:00] VITALS: BP 137/89; TEMP 97.7; O2SAT 97
[2025-01-24] MEDS ORDERED: APIX5TAB PO (09:11)
[2025-01-24] MEDS: risperiDONE 1 MG TABLET PO SCH (09:34)
[2025-01-24] MEDS: BENZTROPINE MESYLATE (1 MG) 1 MG TABLET PO SCH (09:35)
[2025-01-24] MEDS ORDERED: GABA-532 PO (10:44)
[2025-01-24] MEDS: GABAPENTIN 100 MG CAPSULE PO SCH (11:01)
[2025-01-24 11:40] LABS: EOSINOPHILS # (AUTO) 0.4 K/uL (0.0-0.7); EOSINOPHILS % (AUTO) 7.7 % (0.0-6.0); HEMATOCRIT 37 % (39-51); HEMOGLOBIN 12.1 g/dL (13.5-17.5); LYMPHOCYTES # (AUTO) 1.1 K/uL (0.8-4.8); LYMPHOCYTES % (AUTO) 22.4 % (20.0-44.0); MEAN CORPUSCULAR HEMOGLOBIN 27 PG (26.0-33.0); MEAN CORPUSCULAR HGB CONC 33 g/dl (31.0-36.0); MEAN CORPUSCULAR VOLUME 81 fL (80-96); MONOCYTES # (AUTO) 0.5 K/uL (0.1-1.30); MONOCYTES % (AUTO) 9.9 % (2.0-12.0); PLATELET COUNT (AUTO) 360 K/uL (150-450); RED BLOOD CELL COUNT(AUTO) 4.55 MIL/uL (4.5-6.0); RED CELL DISTRIBUTION WIDTH 14.7 % (11.5-15.0); WHITE BLOOD COUNT (AUTO) 5.1 K/uL (4.3-11.0)
[2025-01-24 11:56] LABS: ALBUMIN 2.9 g/dL (3.4-5.0); BILIRUBIN,TOTAL 0.3 mg/dL (0.2-1.0); CALCIUM, SERUM 8.2 mg/dL (8.5-10.1); CREATININE 0.7 mg/dL (0.6-1.3); PHOSPHORUS 3.6 mg/dL (2.5-4.9); POTASSIUM 3.9 mmol/L (3.5-5.1); TOTAL PROTEIN, SERUM 8.4 g/dL (6.4-8.2)
[2025-01-24] MEDS ORDERED: OLANZAPINE 10 MG TABLET PO ONE (12:00)
[2025-01-30] MEDS ORDERED: APIXABAN 5 MG TABLET PO SCH (21:00)
== END 2025-01-24 17:46 | disposition home or self-care (01) | DRG 203 ==
LOC: ER 15:05 → TELE1 22:27 → MEDSG1 01-24 10:47
PROVIDERS: ADMIT Internal Medicine; ATTEND Internal Medicine
DX: R07.9 Chest pain, unspecified (principal); Z68.45 Body mass index [BMI] 70 or greater, adult; Z76.5 Malingerer [conscious simulation]; G62.9 Polyneuropathy, unspecified; E66.01 Morbid (severe) obesity due to excess calories; D64.9 Anemia, unspecified; F99 Mental disorder, not otherwise specified; Z59.01 Sheltered homelessness; Z87.891 Personal history of nicotine dependence; Z79.899 Other long term (current) drug therapy; Z86.711 Personal history of pulmonary embolism; Z86.718 Personal history of other venous thrombosis and embolism; F31.9 Bipolar disorder, unspecified; F20.9 Schizophrenia, unspecified
CPT/HCPCS: 36415; 80048-TC; 80053-TC; 80076-TC; 81001; 83605-TC; 83735-TC; 84100-TC; 84484-TC; 85025-TC; 85378-TC; 85730-TC; 93970-TC; 98960; G0378; G0480; J1644; J7050; Q9967

== ENCOUNTER 2025-02-26 16:40 | Emergency (ER) | payer OTHER ==
[~2025-02-26] VITALS: Ht 175.3 cm; Wt 208.7 kg
[~2025-02-26 16:40] MED LIST changes: +APIX5TAB PO; +GABA-532 PO
[2025-02-26 18:00] LABS: PLATELET COUNT (AUTO) 331 K/uL (150-450); RED BLOOD CELL COUNT(AUTO) 4.28 MIL/uL (4.5-6.0); RED CELL DISTRIBUTION WIDTH 15.2 % (11.5-15.0); WHITE BLOOD COUNT (AUTO) 8.1 K/uL (4.3-11.0)
[2025-02-26 18:35] LABS: CALCIUM, SERUM 8.3 mg/dL (8.5-10.1); CREATININE 0.6 mg/dL (0.6-1.3); UREA NITROGEN, BLOOD 10 mg/dL (7-18)
[2025-02-26 18:37] LABS: SODIUM SERUM 139 mmol/L (136-145)
[2025-02-26 18:42] LABS: ALCOHOL, BLOOD < 3 mg/dL (0-10)
[2025-02-26 19:04] VITALS: BP 124/68; TEMP 98; O2SAT 99
== END 2025-02-26 19:05 | disposition home or self-care (01) ==
LOC: ER 16:42
DX: R07.89 Other chest pain (principal); E66.01 Morbid (severe) obesity due to excess calories; R06.02 Shortness of breath; F17.200 Nicotine dependence, unspecified, uncomplicated; Z59.00 Homelessness unspecified; Z79.899 Other long term (current) drug therapy; Z68.44 Body mass index [BMI] 60.0-69.9, adult
CPT/HCPCS: 36415; 71045-TC; 80048-TC; 84443-TC; 84484-TC; 85025-TC; G0480

== ENCOUNTER 2025-03-15 16:05 | Inpatient (IN) | payer OTHER ==
[~2025-03-15] VITALS: Ht 175.3 cm; Wt 206.8 kg
[2025-03-15 16:59] LABS: PLATELET COUNT (AUTO) 393 K/uL (150-450); RED BLOOD CELL COUNT(AUTO) 4.77 MIL/uL (4.5-6.0); RED CELL DISTRIBUTION WIDTH 15.2 % (11.5-15.0); WHITE BLOOD COUNT (AUTO) 8.1 K/uL (4.3-11.0)
[2025-03-15 17:16] LABS: ALCOHOL, BLOOD < 3 mg/dL (0-10); ASPARTATE AMINOTRANSFERASE 16 U/L (15-37); CALCIUM, SERUM 8.4 mg/dL (8.5-10.1); CREATININE 1.0 mg/dL (0.6-1.3); SODIUM SERUM 138 mmol/L (136-145); TOTAL PROTEIN, SERUM 8.5 g/dL (6.4-8.2); UREA NITROGEN, BLOOD 10 mg/dL (7-18)
[2025-03-15 17:20] LABS: NT-PRO BNP 55 pg/mL (0-125)
[2025-03-15] MEDS: ENOXAPARIN SODIUM 120 MG/0.8 ML DISP.SYRIN SQ ONE (18:05)
[2025-03-15 19:40] LABS: AMPHETAMINE, URINE NEGATIVE (NEGATIVE); BARBITURATE, URINE NEGATIVE (NEGATIVE); BENZODIAZEPINE, URINE NEGATIVE (NEGATIVE); CANNABINOID, URINE NEGATIVE (NEGATIVE); COCCAINE, URINE NEGATIVE (NEGATIVE); OPIATE, URINE NEGATIVE (NEGATIVE)
[2025-03-15] MEDS ORDERED: ONDANSETRON HCL/PF 4 MG/2 ML VIAL IVP PRN (20:00)
[2025-03-15] MEDS ORDERED: MAG HYDROX/AL HYDROX/SIMETH 30 ML UDC PO PRN (20:00)
[2025-03-15] MEDS ORDERED: Z GUARD REMEDY 4 OZ OINT TP PRN (20:00)
[2025-03-15] MEDS ORDERED: ACETAMINOPHEN 325 MG TABLET PO PRN (20:00)
[2025-03-15] MEDS ORDERED: MAGNESIUM HYDROXIDE 30 ML UDC PO PRN (20:00)
[2025-03-15] MEDS ORDERED: TEMAZEPAM 15 MG CAPSULE PO PRN (20:00)
[2025-03-15 20:02] LABS: APPEARANCE,URINE CLEAR (CLEAR); BLOOD, URINE NEGATIVE Ery/uL (NEGATIVE); LEUKOCYTE ESTERASE ,URINE NEGATIVE (NEGATIVE); NITRITE, URINE NEGATIVE (NEGATIVE); UGLUCOSE NEGATIVE (NEGATIVE)
[2025-03-15 21:54] VITALS: BP 134/94; TEMP 97.7; O2SAT 96
[2025-03-15] MEDS: PANTOPRAZOLE 40 MG TABLET.DR PO ONE (21:59)
[2025-03-16] VITALS: BP 124/99; TEMP 97.3; O2SAT 98
[2025-03-16 04:00] VITALS: BP 121/99; TEMP 97.9; O2SAT 98
[2025-03-16 08:00] VITALS: BP 139/81; TEMP 97.7; TEMP 97.9; O2SAT 97
[2025-03-16] MEDS: APIXABAN 5 MG TABLET PO SCH (08:24)
[2025-03-16 11:33] LABS: ABG BASE EXCESS 1.9 mmol/L (-2.0-3.0); ABG OXYGEN SATURATION 96.3 % (94.0-98.0); ABG PCO2 46.5 mmHg (35.0-48.0); ABG PH 7.389 (7.350-7.450); ABG PO2 87.6 mmHg (83.0-108.0); ABG TOTAL HEMOGLOBIN 13.2 G/dL (13.5-17.5); SITE, ABG RIGHT RADIAL
== END 2025-03-16 12:20 | disposition left against medical advice (07) | DRG 134 ==
LOC: ER 16:14 → TELE1 20:45
PROVIDERS: ADMIT Registered Nurse Psychiatric/Mental Health; ATTEND Registered Nurse Psychiatric/Mental Health
DX: I26.99 Other pulmonary embolism without acute cor pulmonale (principal); E44.1 Mild protein-calorie malnutrition; E88.09 Other disorders of plasma-protein metabolism, not elsewhere classified; E66.2 Morbid (severe) obesity with alveolar hypoventilation; Z68.44 Body mass index [BMI] 60.0-69.9, adult; F41.9 Anxiety disorder, unspecified; Z20.822 Contact with and (suspected) exposure to COVID-19; Z59.00 Homelessness unspecified; Z86.711 Personal history of pulmonary embolism; Z79.01 Long term (current) use of anticoagulants; F32.A Depression, unspecified; F19.10 Other psychoactive substance abuse, uncomplicated; F10.10 Alcohol abuse, uncomplicated; Y90.0 Blood alcohol level of less than 20 mg/100 ml; D64.9 Anemia, unspecified; Z71.6 Tobacco abuse counseling; Z91.148 Patient's other noncompliance with medication regimen for other reason; Z79.899 Other long term (current) drug therapy; F20.9 Schizophrenia, unspecified; F17.200 Nicotine dependence, unspecified, uncomplicated
CPT/HCPCS: 36415; 36600; 71045-TC; 80048-TC; 80076-TC; 82803-TC; 83880; 84484-TC; 85025-TC; 85378-TC; 93970-TC; 98960; G0378; G0480; J1650

== ENCOUNTER 2025-03-16 12:51 | Emergency (ER) | payer OTHER ==
[~2025-03-16] VITALS: Ht 167.6 cm; Wt 206.4 kg
[2025-03-16] MEDS: IV NS 0.9% 1,000 ML BAG IV ONE (13:00)
[2025-03-16 13:58] LABS: PLATELET COUNT (AUTO) 384 K/uL (150-450); RED BLOOD CELL COUNT(AUTO) 4.38 MIL/uL (4.5-6.0); RED CELL DISTRIBUTION WIDTH 15.2 % (11.5-15.0); WHITE BLOOD COUNT (AUTO) 8.0 K/uL (4.3-11.0)
[2025-03-16 13:59] LABS: CALCIUM, SERUM 8.5 mg/dL (8.5-10.1); CREATININE 0.9 mg/dL (0.6-1.3); SODIUM SERUM 138 mmol/L (136-145); UREA NITROGEN, BLOOD 15 mg/dL (7-18)
[2025-03-16 14:15] LABS: ALCOHOL, BLOOD < 3 mg/dL (0-10); ASPARTATE AMINOTRANSFERASE 13 U/L (15-37); TOTAL PROTEIN, SERUM 8.1 g/dL (6.4-8.2)
[2025-03-16 15:01] VITALS: BP 141/79; TEMP 98; O2SAT 98
== END 2025-03-16 15:01 | disposition home or self-care (01) ==
LOC: ER 12:57
DX: R07.9 Chest pain, unspecified (principal); E66.01 Morbid (severe) obesity due to excess calories; F17.200 Nicotine dependence, unspecified, uncomplicated; Z59.00 Homelessness unspecified; Z76.5 Malingerer [conscious simulation]; Z79.899 Other long term (current) drug therapy; Z86.711 Personal history of pulmonary embolism; Z68.45 Body mass index [BMI] 70 or greater, adult
CPT/HCPCS: 99285; 96360; 93005; 71045; 85025; 80048; 80076; 85378; 36415; 84484; 80143; 80320; J7030; A4223; G0480

== ENCOUNTER 2025-03-29 11:12 | Emergency (ER) | payer OTHER ==
[~2025-03-29] VITALS: Ht 172.7 cm; Wt 206.4 kg
[2025-03-29 11:20] VITALS: TEMP 98.7
[2025-03-29 12:07] VITALS: BP 148/84; O2SAT 99
== END 2025-03-29 12:08 | disposition home or self-care (01) ==
LOC: ER 11:17
DX: R07.9 Chest pain, unspecified (principal); E66.01 Morbid (severe) obesity due to excess calories; F17.200 Nicotine dependence, unspecified, uncomplicated; Z59.00 Homelessness unspecified; Z68.44 Body mass index [BMI] 60.0-69.9, adult; Z79.899 Other long term (current) drug therapy; Z87.01 Personal history of pneumonia (recurrent)

== ENCOUNTER 2025-04-19 22:00 | Emergency (ER) | payer OTHER ==
[~2025-04-19] VITALS: Ht 175.3 cm; Wt 206.4 kg
[2025-04-19 22:30] LABS: APPEARANCE,URINE CLEAR (CLEAR); BLOOD, URINE NEGATIVE Ery/uL (NEGATIVE); LEUKOCYTE ESTERASE ,URINE NEGATIVE (NEGATIVE); NITRITE, URINE NEGATIVE (NEGATIVE); UGLUCOSE NEGATIVE (NEGATIVE)
[2025-04-19 22:38] LABS: CALCIUM, SERUM 8.5 mg/dL (8.5-10.1); CREATININE 1.1 mg/dL (0.6-1.3); SODIUM SERUM 137 mmol/L (136-145); UREA NITROGEN, BLOOD 8 mg/dL (7-18)
[2025-04-19 22:44] LABS: AMPHETAMINE, URINE NEGATIVE (NEGATIVE); BARBITURATE, URINE NEGATIVE (NEGATIVE); BENZODIAZEPINE, URINE NEGATIVE (NEGATIVE); CANNABINOID, URINE NEGATIVE (NEGATIVE); COCCAINE, URINE NEGATIVE (NEGATIVE); OPIATE, URINE NEGATIVE (NEGATIVE)
[2025-04-19 22:44] LABS: ALCOHOL, BLOOD < 3 mg/dL (0-10); ASPARTATE AMINOTRANSFERASE 22 U/L (15-37); TOTAL PROTEIN, SERUM 8.5 g/dL (6.4-8.2)
[2025-04-19 22:54] LABS: PLATELET COUNT (AUTO) 297 K/uL (150-450); RED BLOOD CELL COUNT(AUTO) 4.69 MIL/uL (4.5-6.0); RED CELL DISTRIBUTION WIDTH 14.9 % (11.5-15.0); WHITE BLOOD COUNT (AUTO) 4.6 K/uL (4.3-11.0)
[2025-04-20 09:04] VITALS: BP 128/70; TEMP 98; O2SAT 99
== END 2025-04-20 09:00 | disposition home or self-care (01) ==
LOC: ER 22:04
DX: R45.851 Suicidal ideations (principal); R44.0 Auditory hallucinations; R06.02 Shortness of breath; F17.200 Nicotine dependence, unspecified, uncomplicated; F19.11 Other psychoactive substance abuse, in remission; Z79.899 Other long term (current) drug therapy; Z20.822 Contact with and (suspected) exposure to COVID-19
CPT/HCPCS: 36415; 80048-TC; 80076-TC; 85025-TC; G0480